=== PATIENT | female | born 1950 | race Caucasian/White ===

== ENCOUNTER 2019-04-27 13:14 | Outpatient (CLI) | payer MEDICARE, SELFPAY ==
--- NOTE | ~2019-04-27 | MM_ITS ---
EXAMINATION: MM screen LT diag RT w teresa HISTORY: Carcinoma of right breast, June 2018; status post right partial mastectomy and radiation stephan tment TECHNIQUE: Bilateral rotated lateral CC views. 3-D tomosynthesis images of both breasts were performe d and synthetic 2-D images were generated. CAD analysis was submitted and interpreted. Additional com pression views of right breast. COMPARISON: 05/12/2018 diagnostic right digital mammogram Tobilateral digital screening mammogram BREAST PARENCHYMAL COMPOSITION: There are scattered areas of fibroglandular density. FINDINGS: Status post right partial mastectomy with multiple surgical clips present in the upper inne r and upper outer quadrants. There is asymmetric skin thickening on the right compared to the left wh ich may be secondary to history of radiation treatment. Status post left reduction mammoplasty since 04/22/2018. No suspicious mass or suspicious calcification of either breast is evident. IMPRESSION: 1. Probable benign findings; probable postsurgical and post radiation changes of right breast- 2. Recommend 6 month follow-up right diagnostic mammogram BI-RADS category 3, probably benign findings. Reviewed, dictated and finalized at location A. PHONE ORDER CLERK IMPRESSION: 1. Probable benign findings; probable postsurgical and post radiation changes o f right breast- 2. Recommend 6 month follow-up right diagnostic mammogram BI-RADS category 3, probably benign findings.
== END 2019-04-27 13:15 | disposition home or self-care (01) ==
PROVIDERS: PCP Family Medicine; Visit Provider Internal Medicine Hematology & Oncology
DX: Z12.31 Encounter for screening mammogram for malignant neoplasm of breast (principal); C50.911 Malignant neoplasm of unspecified site of right female breast; C77.3 Secondary and unspecified malignant neoplasm of axilla and upper limb lymph nodes
CPT/HCPCS: 77063; 77065; 77067

== ENCOUNTER 2019-06-01 14:02 | Outpatient (CLI) | payer MEDICARE, SELFPAY ==
[2019-06-01 14:14] LABS: Basophils Percent Auto 0.5 % (0.2-1.2); Eosinophils Absolute Auto 0.2 K/mm3 (0-0.3); Eosinophils Percent Auto 2.6 % (0-4.4); Hematocrit 43.8 % (37.0-47.0); Hemoglobin 14.7 g/dL (12.0-15.0); Immature Granulocyte Absolute 0.02 K/mm3 (0.00-0.031); Immature Granulocyte Percent A 0.3 % (0-0.5); Lymphocytes Percent Auto 19.6 % (18.3-44.2); Mean Corpuscular HGB Conc 33.6 g/dl (32-36); Mean Corpuscular Hemoglobin 31.9 pg (26-34); Mean Platelet Volume 9.4 fl (7.4-10.4); Monocytes Absolute Auto 0.6 K/mm3 (0.1-0.6); Neutrophils Absolute Auto 4.2 K/mm3 (1.3-6.7); Platelet Count Result 260 k/mm3 (150-375); Red Blood Count 4.61 M/mm3 (4.2-5.4); Red Cell Distribution Width 13.1 % (11.5-14.5); White Blood Count 6.1 K/mm3 (4.5-10.0)
[2019-06-01 16:37] LABS: Alanine Aminotransferase 16 U/L (4-35); Albumin Level 4.2 g/dL (3.5-5.1); Alkaline Phosphatase 82 U/L (38-126); Aspartate Amino Transferase 26 U/L (14-36); Bilirubin,Total 0.4 mg/dL (0.2-1.3); Blood Urea Nitrogen 14 mg/dL (7-17); Calcium 9.5 mg/dL (8.4-10.2); Carbon Dioxide 27 mmol/L (22-30); Chloride 103 mmol/L (98-107); Estimated Glomerular Filt Rate > 60; Glucose 123 mg/dL (65-105); Potassium 4.1 mmol/L (3.4-5.0); Sodium 137 mmol/L (137-145)
[2019-06-04 03:53] LABS: CA 15-3 17 U/mL (<32)
== END 2019-06-01 14:03 | disposition home or self-care (01) ==
LOC: ANHLAB 14:03
PROVIDERS: PCP Family Medicine; Visit Provider Internal Medicine Hematology & Oncology
DX: C50.911 Malignant neoplasm of unspecified site of right female breast (principal); C77.3 Secondary and unspecified malignant neoplasm of axilla and upper limb lymph nodes
CPT/HCPCS: 36415; 80053; 85025; 86300

== ENCOUNTER 2019-08-03 08:31 | Outpatient (CLI) | payer MEDICARE, SELFPAY ==
--- NOTE | ~2019-08-03 | CT_ITS ---
EXAMINATION: CT chest high resolution [facility] EXAM DATE: 08/03/2019 10:09 INDICATION: Cough and shortness of breath. History of breast cancer. TECHNIQUE: Spiral CT of the chest without contrast. HRCT. Axial, coronal and sagittal images were re viewed. Coronal maximum intensity pixel images of chest reviewed. The dose-length product (DLP) for this examination was 142.39 mGy-cm. The exposure was tailored according to patient size (auto mA ex posure control), and iterative reconstruction (ASIR) was used as additional dose reduction technique. There is no prior study for comparison. FINDINGS: There is mild to moderate centrilobular emphysema. Mild bronchiectasis. Right breast surgi zain changes. No intralobular septal thickening on the HRCT portion of exam. There are no pleural or p ericardial effusions. Tracheobronchial tree is patent. There is no mediastinal, hilar or axillary lymphadenopathy. There is no pneumothorax. Heart normal in size. There is moderate coronary ar terial calcification, arterial sclerosis. There are cholecystectomy clips. There is moderate thora cic spondylosis without osteoblastic or osteolytic lesions identified. IMPRESSION: 1. Mild to moderate emphysema. Reviewed, dictated and finalized at location A.
--- NOTE | 2019-08-04 12:52 | PFT_ITS ---
This report was moved to the correct visit, [id number] on 08/07/19. Original report was signed by Damaris Bowman MD on 08/04/19 at 1300. PFT Interpretation PFT Interpretation: DOS: 08/03/2019 REQUESTING: Eddie Madera REASON FOR TESTING: shortness of breath PULMONARY FUNCTION TESTS Results are reproducible. Spirometry: FEV1 113%, normal. FVC 112%, normal. FEV1% is 73%, normal. FEF25- 75% is 71%. After bronchodialtor, there is minimal change in flows. Lung volumes: TLC 101%. RV 86%, also normal. Airway resistance 111%. Diffusion: DLCO is 61%, mildly decreased which may be due to the patients smoking. Flow volume loop: There is mild scooping of the expiratory limb. IMPRESSION: Mild isolated decreased in diffusion. Otherwise normal results. Isolated decrease in diffusion can be seen in smoking anemia, early ILD, collagen vascular disease with pulmonary vascular involvement and chronic thromboembolic disease. Clinical correlation is recommended. Damaris Bowman MD Report Initialized date/time: Damaris Bowman MD 08/04/19 / 1252 Electronically signed by: Damaris Bowman MD 08/04/19 1300 [facility]
== END 2019-08-03 08:32 | disposition home or self-care (01) ==
PROVIDERS: PCP Family Medicine; Visit Provider Internal Medicine Critical Care Medicine
DX: J43.9 Emphysema, unspecified (principal)
CPT/HCPCS: 71250; 94060; 94726; 94729

== ENCOUNTER 2019-11-24 11:40 | Outpatient (CLI) | payer MEDICARE, SELFPAY ==
[2019-11-24 12:01] LABS: Basophils Percent Auto 0.4 % (0.2-1.2); Eosinophils Absolute Auto 0.1 K/mm3 (0-0.3); Eosinophils Percent Auto 2.8 % (0-4.4); Hematocrit 40.8 % (37.0-47.0); Hemoglobin 13.8 g/dL (12.0-15.0); Immature Granulocyte Absolute 0.01 K/mm3 (0.00-0.031); Immature Granulocyte Percent A 0.2 % (0-0.5); Lymphocytes Percent Auto 16.1 % (18.3-44.2); Mean Corpuscular HGB Conc 33.8 g/dl (32-36); Mean Corpuscular Hemoglobin 31.7 pg (26-34); Mean Corpuscular Volume 93.6 fl (80-100); Mean Platelet Volume 9.1 fl (7.4-10.4); Monocytes Absolute Auto 0.3 K/mm3 (0.1-0.6); Monocytes Percent Auto 6.8 % (2.6-8.5); Neutrophils Absolute Auto 3.7 K/mm3 (1.3-6.7); Neutrophils Percent Auto 73.7 % (45.5-73.1); Platelet Count Result 225 k/mm3 (150-375); Red Blood Count 4.36 M/mm3 (4.2-5.4); Red Cell Distribution Width 12.9 % (11.5-14.5)
[2019-11-24 16:52] LABS: Cholesterol 220 mg/dL (0-200); HDL Direct 55 mg/dL; Triglycerides 155 mg/dL (<150)
[2019-11-24 16:56] LABS: Alanine Aminotransferase 14 U/L (4-35); Alkaline Phosphatase 71 U/L (38-126); Anion Gap 6 mmol/L (8-16); Aspartate Amino Transferase 24 U/L (14-36); Bilirubin,Total 0.3 mg/dL (0.2-1.3); Blood Urea Nitrogen 15 mg/dL (7-17); Calcium 9.3 mg/dL (8.4-10.2); Carbon Dioxide 33 mmol/L (22-30); Chloride 102 mmol/L (98-107); Estimated Glomerular Filt Rate > 60; Glucose 128 mg/dL (65-105); Potassium 4.2 mmol/L (3.4-5.0); Sodium 141 mmol/L (137-145)
[2019-11-24 17:11] LABS: Iron 70 ug/dL (37-170); Vitamin D 25 Hydroxy 36.6 ng/mL
[2019-11-24 17:14] LABS: Erythrocyte Sedimentation Rate 16 mm/hr (0-20)
[2019-11-24 17:21] LABS: LDL Cholesterol Direct 157 mg/dL
[2019-11-24 17:23] LABS: Hemoglobin A1C 5.1 % (<5.7); Percent Iron Saturation 25 % (20-50); Thyroid Stimulating Hormone Reflex 0.073 uIU/mL (0.465-4.68)
[2019-11-24 19:39] LABS: Free T4 Free Thyroxine Reflex 1.59 ng/dL (0.78-2.19)
[2019-11-27 07:31] LABS: CA 15-3 18 U/mL (<32)
== END 2019-11-24 11:41 | disposition home or self-care (01) ==
PROVIDERS: PCP Family Medicine; Visit Provider Internal Medicine Hematology & Oncology
DX: R53.83 Other fatigue (principal); E78.2 Mixed hyperlipidemia; M79.10 Myalgia, unspecified site; E03.9 Hypothyroidism, unspecified; E55.9 Vitamin D deficiency, unspecified; E11.9 Type 2 diabetes mellitus without complications; C50.411 Malignant neoplasm of upper-outer quadrant of right female breast; Z17.0 Estrogen receptor positive status [ER+]
CPT/HCPCS: 36415; 80053; 80061; 82306; 82728; 83036; 83540; 83550; 84439; 84443; 84480; 85025; 85652; 86300

== ENCOUNTER 2019-12-10 12:36 | Outpatient (CLI) | payer MEDICARE, SELFPAY ==
--- NOTE | 2019-12-13 09:26 | WPDSIXMINUTE ---
Six Minute Walk Six Minute Walk: The patients O2 sats started at 98% and dropped as low as 96% Total walk distance 304.38 meters conclusion: This patient does not qualify for home oxygen therapy
== END 2019-12-10 12:37 | disposition home or self-care (01) ==
PROVIDERS: PCP Family Medicine; Visit Provider Family Medicine
DX: J44.9 Chronic obstructive pulmonary disease, unspecified (principal)
CPT/HCPCS: 94618

== ENCOUNTER 2019-12-15 12:53 | Outpatient (CLI) | payer MEDICARE, SELFPAY ==
--- NOTE | ~2019-12-15 | CT_ITS ---
EXAMINATION: CT chest abdomen pelvis w con EXAM DATE: 12/15/2019 14:35 INDICATION: Right-sided breast cancer. TECHNIQUE: Spiral CT of the chest, abdomen and pelvis was performed following intravenous injection o f 100 mL Omnipaque 350. Axial, coronal and sagittal images were reviewed. Coronal maximum intensity pixel images of chest reviewed. The dose-length product (DLP) for this examination was 548.50 mGy-c m. The exposure was tailored according to patient size (auto mA exposure control), and iterative rec onstruction (ASIR) was used as additional dose reduction technique. Comparison is made to prior exami nation from 08/03/2019 CT chest, 05/12/2018 CT abdomen. FINDINGS: CHEST: There is mild emphysema. There is right middle lobe linear scarring. There are no pleural or pericardial effusions. Tracheobronchial tree is patent. There is no mediastinal, hilar or axilla ry lymphadenopathy. There is no pneumothorax. Heart normal in size. There is moderate coronary arterial calcification, arterial sclerosis. ABDOMEN PELVIS: Left adrenal gland hyperplasia versus nodule which could measure up to 1.5 cm. This r egion does appear more conspicuous than in 2019. Differential diagnosis for mass would include adenom a, metastatic disease. The liver, spleen, adrenal glands and pancreas are unremarkable. There are dyer rgical clips in the gallbladder fossa. Some biliary duct dilation which is common finding following cholecystectomy. Portal and splenic veins are patent. Kidneys enhance symmetrically. There is no h ydronephrosis. The uterus is unremarkable. The bladder is unremarkable. There is no retroperiton eal or pelvic lymphadenopathy. There is moderate scattered arteriosclerotic disease. The appendix is normal. The stomach and small bowel are unremarkable. There is mild to moderate sigm oid colonic diverticulosis. There is no adjacent inflammatory change to suggest diverticulitis. No free intraperitoneal gas. There are no osteoblastic or osteolytic lesions identified. IMPRESSION: 1. Possible left adrenal mass versus hyperplasia. Attention to this on follow-up exam. 2. Colonic diverticulosis. Reviewed, dictated and finalized at location A. IMPRESSION: 1. Possible left adrenal mass versus hyperplasia. Attention to this on follow- up exam. 2. Colonic diverticulosis.
--- NOTE | ~2019-12-15 | MM_ITS ---
EXAMINATION: MM diagnostic maria a RT w teresa HISTORY: Right partial mastectomy and radiation treatment; six-month follow-up TECHNIQUE: 3-D tomosynthesis images of the right breast were performed and synthetic 2-D images were generated. CAD analysis was submitted and interpreted. COMPARISON: 05/12/2018 diagnostic right digital mammogram and limited right breast ultrasound 04/22/2018 bilateral digital screening mammogram BREAST PARENCHYMAL COMPOSITION: There are scattered areas of fibroglandular density. FINDINGS: Surgical clips are noted in the upper inner and upper outer quadrant of the right breast. No suspicious mass or significant new or developing density of the right breast is evident. Occasiona l benign appearing microcalcifications are noted. IMPRESSION: 1. Status post right partial mastectomy and radiation treatment for breast cancer 2. No mammographic evidence of malignancy is identified on the current examination BI-RADS Category 2: Benign finding(s).. Reviewed, dictated and finalized at location A. IMPRESSION: 1. Status post right partial mastectomy and radiation treatment for breast canc er 2. No mammographic evidence of malignancy is identified on the current examinat ion BI-RADS Category 2: Benign finding(s)..
[2019-12-15 14:27] LABS: Estimated Glomerular Filt Rate > 60
== END 2019-12-15 12:54 | disposition home or self-care (01) ==
LOC: ANHIMG 12:57
PROVIDERS: PCP Family Medicine; Visit Provider Internal Medicine Hematology & Oncology
DX: C50.411 Malignant neoplasm of upper-outer quadrant of right female breast (principal); Z17.0 Estrogen receptor positive status [ER+]; K57.30 Diverticulosis of large intestine without perforation or abscess without bleeding
CPT/HCPCS: 71260; 74177; 77061; 77065; G0279; Q9967

== ENCOUNTER 2019-12-25 13:00 | Outpatient (RCR) | payer MEDICARE, SELFPAY ==
[2019-12-03 12:18] VITALS: PULSE 70
--- NOTE | 2019-12-28 14:18 | PCCPR ---
Clarissa called today and stated that she fell and hurt her ankle, she will be absent on Saturday.
--- NOTE | 2019-12-29 16:17 | PCCPR ---
Addendum entered by Linsey Eagle RN 12/31/19 13:45: Clarissa called today states she got up in the middle of the night using her crutches and fell into the bathtub. States she fractured her arm and her ankle. States she is pretty sure even though she would love to but will be months before she would be able to return. Encouraged her to check back with us after the 1st of the year if she would like to return. Discharged as requested. Original Note: Clarissa fell needs MARITZA for foot fracture Clarissa called to update us she fell in her yard and broke a toe and one of her metatarsals. She hopes to return as soon as able however was told to stay off of it as much as possible for the next 6 weeks. She wants us to let her know what ever she needs to do but is fine with being placed on hold for now.
== END 2020-01-01 10:42 | disposition home or self-care (01) ==
LOC: ANHCPREHAB 13:00
PROVIDERS: PCP Family Medicine; Visit Provider Family Medicine
DX: J44.9 Chronic obstructive pulmonary disease, unspecified (principal)
CPT/HCPCS: 97150; G0424

== ENCOUNTER 2019-12-29 13:09 | Emergency (ER) | payer MEDICARE, SELFPAY ==
--- NOTE | ~2019-12-29 | XR_ITS ---
EXAMINATION: XR ankle LT min 3V DATE: 12/29/2019 13:43 INDICATION: Left foot pain and ankle swelling TECHNIQUE: Three views of the ankle were obtained. COMPARISON: None. FINDINGS: There is fragmentation at the lateral malleolus which appears to be well corticated, sugges tive of prior injury. No definite acute injury is identified. There is soft tissue swelling of ankle. The ankle mortise is intact. Bone alignment is normal. A plantar calcaneal enthesophyte is present. IMPRESSION: 1. Ankle soft tissue swelling and findings suggestive of prior avulsion injury of the lateral malleol us without acute osseous findings seen. Reviewed, dictated and finalized at location A. SPRING STRIP GAUGER IMPRESSION: 1. Ankle soft tissue swelling and findings suggestive of prior avulsion injury of the lateral malleolus without acute osseous findings seen.
--- NOTE | ~2019-12-29 | XR_ITS ---
EXAMINATION: XR foot LT min 3V DATE: 12/29/2019 13:29 INDICATION: Left foot pain, initial encounter TECHNIQUE: Dorsoplantar, lateral, and 2 oblique views of the left foot were obtained. COMPARISON: None. FINDINGS: There is an acute, traumatic, closed, comminuted shaft fracture of the fifth metatarsal. So ft tissue swelling surrounds the fracture. Alignment is essentially anatomic. There is mild to modera te osteoarthritis at the first metatarsophalangeal joint and in multiple interphalangeal joints. A pl dawson calcaneal enthesophyte is noted. Soft tissue swelling is noted at the lateral ankle. IMPRESSION: 1. Acute, comminuted shaft fracture of the fifth metatarsal. 2. Soft tissue swelling at the lateral ankle. Consider dedicated ankle radiographs. Reviewed, dictated and finalized at location A. ATRIC PHYSICIAN ASSISTANT IMPRESSION: 1. Acute, comminuted shaft fracture of the fifth metatarsal. 2. Soft tissue swelling at the lateral ankle. Consider dedicated ankle radiogra phs.
[2019-12-29 13:11] VITALS: BP 102/83; PULSE 96; RESP 18; TEMP 36.3; O2SAT 99
--- NOTE | 2019-12-29 13:32 | ED.LOWEXIN ---
HPI - Extremity Injury (Lower) General Chief Complaint: Extremity Injury, Lower Stated Complaint: Left Foot Injury Time Seen by Provider: 12/29/19 13:18 Source: patient History of Present Illness HPI Narrative: 69-year-old female presents to emergency department after sustaining a fall yesterday afternoon. Patient states she was walking downstairs at home, and fell down the last 1-2 stairs. She reports pain to the left foot and left ankle. Denies losing consciousness. Denies anticoagulation use. Patient also states she hit the left side of her head. She took aspirin for pain yesterday. Related Data Home Medications Medication Instructions Recorded Confirmed famotidine 20 mg tablet 20 mg PO DAILY PRN 11/13/19 12/03/19 letrozole 2.5 mg tablet 2.5 mg PO DAILY 11/13/19 12/03/19 acetaminophen [Acetaminophen Extra 500 mg PO HS PRN 12/03/19 12/03/19 Strength] bioflavonoids 1,000 mg PO DAILY 12/03/19 12/03/19 fluticasone furoate-vilanterol 1 inh INHALATION DAILY 12/03/19 12/03/19 [Breo Ellipta] venlafaxine 75 mg PO DAILY 12/03/19 12/03/19 Allergies Allergy/AdvReac Type Severity Reaction Status Date / Time Antihistamines - Alkylamine Allergy Unknown ANXIETY Verified 12/29/19 13:43 codeine AdvReac Unknown Nausea and Verified 12/29/19 13:43 Vomiting hydrocodone AdvReac Unknown NAUSEA AND Verified 12/29/19 13:43 VOMITING Review of Systems Review of Systems: Narrative: CONSTITUTIONAL: Denies fever, chills, or sweats. EYES: Denies visual changes, redness, or discharge. ENT: Denies rhinorrhea, congestion, sore throat, or otalgia. CARDIOVASCULAR: Denies chest pain, palpitations, or edema. RESPIRATORY: Denies cough or dyspnea. GASTROINTESTINAL: Denies abdominal pain, nausea, vomiting, or diarrhea. GENITOURINARY: Denies dysuria or hematuria. SKIN: Denies rash or itching. MUSCULOSKELETAL: Denies back pain, joint pain, or myalgia. NEUROLOGIC: Denies headache, numbness, dizziness, or weakness. PSYCHIATRIC: Denies anxiety or depression. All systems reviewed & are unremarkable except as noted in HPI and below (ROS) PMFSH Past Medical History Medical History (Updated 12/29/19 @ 21:11 by Jaycob Yan DO) Anxiety Fibromyalgia H/O Sjogren's disease Hypothyroidism Insomnia Lymphedema Malignant neoplasm of upper-outer quadrant of right female breast Mixed hyperlipidemia Family History Family History Father Depression Family history of coronary artery disease Hyperlipemia Heart attack Mother Family history of arthritis Heart attack Social History Social History Smoking packs per day: 2 Smoking cigarettes per day: 40.0 Years smoked: 23 Smoking pack-years: 46.00 Smoking status: Former smoker Tobacco type: cigarettes Second hand tobacco smoke exposure: No Smoking end date: 02/25/99 Alcohol intake: current Gender identity (if verbalized by the patient): Female Exam Narrative: Exam Narrative: GENERAL: Well-appearing, well-nourished, and in no acute distress. HEAD: Normocephalic, atraumatic. EYES: PERRLA and EOMI. ENT: Nares clear, no rhinorrhea or epistaxis. Mucous membranes moist. NECK: Supple. CHEST: Clear to auscultation. No respiratory distress. HEART: Regular rate and rhythm. No murmur heard. Normal peripheral pulses. ABDOMEN: Soft, nontender, nondistended, normal active bowel sounds. EXTREMITIES: Left lateral foot with swelling and tenderness to palpation. Left ankle swelling and TTP SKIN: Warm, dry, no rash. NEURO: No focal deficits. Alert and oriented x3. PSYCH: Normal mood and affect. Course Reevaluation(s) Reevaluation #1: 1525 -reevaluated patient, no new complaints. Will prescribe postop shoe for discharge. Patient states she has crutches at home to use. Additionally, patient has a senior warehouse clerk that she will follow up with within 1 week. Counseled patient
--- NOTE | 2019-12-29 15:05 | PC.NURSE ---
Report given to TOMY Medina
[2019-12-29 16:01] VITALS: BP 106/71; PULSE 76; RESP 16; TEMP 36.8; O2SAT 100
== END 2019-12-29 16:02 | disposition home or self-care (01) ==
PROVIDERS: Emergency Provider Emergency Medicine; PCP Family Medicine
DX: S92.352A Displaced fracture of fifth metatarsal bone, left foot, initial encounter for closed fracture (principal); S93.402A Sprain of unspecified ligament of left ankle, initial encounter; W10.9XXA Fall (on) (from) unspecified stairs and steps, initial encounter; Z87.891 Personal history of nicotine dependence; F41.9 Anxiety disorder, unspecified; M79.7 Fibromyalgia; E03.9 Hypothyroidism, unspecified; Z85.3 Personal history of malignant neoplasm of breast
CPT/HCPCS: 73610; 73630; 99284

== ENCOUNTER 2020-02-24 11:29 | Outpatient (CLI) | payer MEDICARE, SELFPAY ==
[2020-02-24 11:47] LABS: Hematocrit 42.6 % (37.0-47.0); Hemoglobin 14.4 g/dL (12.0-15.0); Mean Corpuscular HGB Conc 33.8 g/dl (32-36); Mean Corpuscular Hemoglobin 32.1 pg (26-34); Mean Corpuscular Volume 94.9 fl (80-100); Mean Platelet Volume 9.6 fl (7.4-10.4); Platelet Count Result 251 k/mm3 (150-375); Red Blood Count 4.49 M/mm3 (4.2-5.4); White Blood Count 6.2 K/mm3 (4.5-10.0)
[2020-02-24 12:38] LABS: Hemoglobin A1C 4.8 % (<5.7)
[2020-02-24 12:40] LABS: Alanine Aminotransferase 11 U/L (4-35); Albumin Level 3.9 g/dL (3.5-5.1); Alkaline Phosphatase 80 U/L (38-126); Anion Gap 5 mmol/L (8-16); Aspartate Amino Transferase 22 U/L (14-36); Bilirubin,Total 0.4 mg/dL (0.2-1.3); Blood Urea Nitrogen 14 mg/dL (7-17); Calcium 9.6 mg/dL (8.4-10.2); Carbon Dioxide 32 mmol/L (22-30); Chloride 103 mmol/L (98-107); Estimated Glomerular Filt Rate > 60; Glucose 101 mg/dL (65-105); Potassium 4.3 mmol/L (3.4-5.0); Sodium 140 mmol/L (137-145)
[2020-02-24 13:00] LABS: Thyroid Stimulating Hormone Reflex 0.024 uIU/mL (0.465-4.68)
[2020-02-24 13:57] LABS: Free T4 Free Thyroxine Reflex 1.63 ng/dL (0.78-2.19)
[2020-02-24 14:37] LABS: Total Triiodothyronine (T3) 1.32 NG/ML (0.97-1.69)
[2020-03-01 11:06] LABS: CA 15-3 18 U/mL (<32)
== END 2020-02-24 11:30 | disposition home or self-care (01) ==
LOC: ANHLAB 11:30
PROVIDERS: PCP Family Medicine; Visit Provider Family Medicine
DX: C50.411 Malignant neoplasm of upper-outer quadrant of right female breast (principal); R53.83 Other fatigue; R73.9 Hyperglycemia, unspecified; E03.9 Hypothyroidism, unspecified
CPT/HCPCS: 36415; 80053; 83036; 84439; 84443; 84480; 85027; 86300

== ENCOUNTER 2020-05-17 14:37 | Outpatient (CLI) | payer MEDICARE, SELFPAY ==
[2020-05-17 15:04] LABS: Basophils Percent Auto 0.7 % (0.2-1.2); Eosinophils Absolute Auto 0.2 K/mm3 (0-0.3); Eosinophils Percent Auto 3.1 % (0-4.4); Hematocrit 39.5 % (37.0-47.0); Hemoglobin 13.2 g/dL (12.0-15.0); Immature Granulocyte Absolute 0.01 K/mm3 (0.00-0.031); Immature Granulocyte Percent A 0.2 % (0-0.5); Lymphocytes Absolute Auto 1.13 K/mm3 (0.9-3.2); Lymphocytes Percent Auto 20.8 % (18.3-44.2); Mean Corpuscular HGB Conc 33.4 g/dl (32-36); Mean Corpuscular Hemoglobin 31.7 pg (26-34); Mean Corpuscular Volume 94.7 fl (80-100); Mean Platelet Volume 9.3 fl (7.4-10.4); Monocytes Absolute Auto 0.5 K/mm3 (0.1-0.6); Monocytes Percent Auto 9.6 % (2.6-8.5); Neutrophils Absolute Auto 3.6 K/mm3 (1.3-6.7); Neutrophils Percent Auto 65.6 % (45.5-73.1); Platelet Count Result 274 k/mm3 (150-375); Red Blood Count 4.17 M/mm3 (4.2-5.4); Red Cell Distribution Width 13.2 % (11.5-14.5); White Blood Count 5.4 K/mm3 (4.5-10.0)
[2020-05-17 16:43] LABS: Erythrocyte Sedimentation Rate 22 mm/hr (0-20)
[2020-05-17 16:59] LABS: Alanine Aminotransferase 12 U/L (4-35); Albumin Level 3.9 g/dL (3.5-5.1); Alkaline Phosphatase 81 U/L (38-126); Anion Gap 4 mmol/L (8-16); Aspartate Amino Transferase 25 U/L (14-36); Bilirubin,Total 0.2 mg/dL (0.2-1.3); Blood Urea Nitrogen 13 mg/dL (7-17); Calcium 9.1 mg/dL (8.4-10.2); Carbon Dioxide 32 mmol/L (22-30); Chloride 102 mmol/L (98-107); Estimated Glomerular Filt Rate > 60; Glucose 91 mg/dL (65-105); Potassium 3.9 mmol/L (3.4-5.0); Sodium 138 mmol/L (137-145)
[2020-05-17 17:26] LABS: Thyroid Stimulating Hormone < 0.015 uIU/mL (0.465-4.680)
[2020-05-17 18:01] LABS: Folic Acid 5.9 ng/mL (2.76->20)
[2020-05-20 06:44] LABS: CA 15-3 12 U/mL (<32)
== END 2020-05-17 14:38 | disposition home or self-care (01) ==
LOC: ANHLAB 14:39
PROVIDERS: PCP Family Medicine; Visit Provider Internal Medicine Hematology & Oncology
DX: C50.411 Malignant neoplasm of upper-outer quadrant of right female breast (principal); Z17.0 Estrogen receptor positive status [ER+]; R26.9 Unspecified abnormalities of gait and mobility; R42 Dizziness and giddiness; E03.9 Hypothyroidism, unspecified
CPT/HCPCS: 36415; 80053; 82607; 82746; 84439; 84443; 85025; 85652; 86038; 86300

== ENCOUNTER 2020-05-30 10:32 | Outpatient (CLI) | payer MEDICARE, SELFPAY ==
--- NOTE | ~2020-05-30 | CT_ITS ---
EXAMINATION: CT abdomen pelvis wo/w con DATE: 05/30/2020 11:03 INDICATION: Left adrenal mass. Right breast cancer. TECHNIQUE: Computed tomography (CT) of the abdomen and pelvis was performed without and with 100 mL O mnipaque 350 intravenous contrast. Automated exposure control and iterative reconstruction technique were employed. The dose-length product was 541.91 mGy-cm. COMPARISON: CT 12/15/2019 FINDINGS: The visualized portions of the lung bases demonstrate minimal atelectasis. No pleural effus ion. The heart size is normal. There are coronary artery calcifications. No pericardial effusion. The re are cysts in the liver measuring up to 18 mm. There are changes of cholecystectomy. Calcifications in the spleen are consistent with old granulomatous disease. The pancreas and right adrenal gland ar e normal. There is a 1.3 cm mass in left adrenal gland measuring low-attenuation, consistent with an adenoma. Right kidney is normal. There are cysts in left kidney measuring up to 6 mm. There is divert iculosis of the colon without evidence of diverticulitis. There are no dilated loops of bowel. The ap pendix is normal. There are no pathologically enlarged lymph nodes. There is no free intraperitoneal fluid. There is severe lower thoracic spondylosis. There is moderate lumbar spondylosis. IMPRESSION: 1. Stable 1.3 cm left adrenal adenoma. 2. No evidence of metastatic disease. Reviewed, dictated and finalized at location A.
== END 2020-05-30 10:33 | disposition home or self-care (01) ==
PROVIDERS: PCP Family Medicine; Visit Provider Internal Medicine Hematology & Oncology
DX: E27.8 Other specified disorders of adrenal gland (principal)
CPT/HCPCS: 74178; Q9967

== ENCOUNTER 2020-06-28 12:40 | Outpatient (CLI) | payer MEDICARE, SELFPAY ==
--- NOTE | ~2020-06-28 | MM_ITS ---
EXAMINATION: MM diagnostic maria a BI w teresa HISTORY: History of right breast cancer TECHNIQUE: Additional 3-D tomosynthesis images of the breasts were performed and synthetic 2-D images were generated. CAD analysis was submitted and interpreted. COMPARISON: Comparison to multiple prior studies sequentially, with oldest reviewed study dated 09/09. BREAST PARENCHYMAL COMPOSITION: There are scattered areas of fibroglandular density. FINDINGS: Stable postsurgical change in both breasts consistent with previous right lumpectomy and bi lateral breast reduction surgery. No new masses, calcifications or architectural distortion in either breast to suggest malignancy. IMPRESSION: 1. No mammographic evidence for malignancy in either breast. 2. Routine yearly screening mammogram and regular clinical breast examination are recommended. BI-RADS Category 1: Negative Reviewed, dictated and finalized at location A. IMPRESSION: 1. No mammographic evidence for malignancy in either breast. 2. Routine yearly screening mammogram and regular clinical breast examination a re recommended. BI-RADS Category 1: Negative
== END 2020-06-28 12:41 | disposition home or self-care (01) ==
LOC: ANHIMG 12:42
PROVIDERS: PCP Family Medicine; Visit Provider Internal Medicine Hematology & Oncology
DX: R92.8 Other abnormal and inconclusive findings on diagnostic imaging of breast (principal)
CPT/HCPCS: 77062; 77066; G0279

== ENCOUNTER 2020-08-01 11:36 | Outpatient (CLI) | payer MEDICARE, SELFPAY ==
[2020-08-01 17:40] LABS: Alanine Aminotransferase 12 U/L (4-35); Albumin Level 4.3 g/dL (3.5-5.1); Alkaline Phosphatase 91 U/L (38-126); Anion Gap 9 mmol/L (8-16); Aspartate Amino Transferase 28 U/L (14-36); Bilirubin,Total 0.4 mg/dL (0.2-1.3); Blood Urea Nitrogen 12 mg/dL (7-17); Calcium 9.7 mg/dL (8.4-10.2); Carbon Dioxide 28 mmol/L (22-30); Chloride 104 mmol/L (98-107); Estimated Glomerular Filt Rate > 60; Glucose 102 mg/dL (65-105); Potassium 4.6 mmol/L (3.4-5.0); Sodium 141 mmol/L (137-145)
[2020-08-01 17:55] LABS: Free T4 Free Thyroxine 1.33 ng/mL (0.78-2.19)
[2020-08-01 18:11] LABS: Thyroid Stimulating Hormone 0.045 uIU/mL (0.465-4.680); Total Triiodothyronine (T3) 1.19 NG/ML (0.97-1.69)
== END 2020-08-01 11:37 | disposition home or self-care (01) ==
LOC: ANHLAB 11:46
PROVIDERS: PCP Family Medicine; Visit Provider Internal Medicine Hematology & Oncology
DX: R53.83 Other fatigue (principal); E03.9 Hypothyroidism, unspecified
CPT/HCPCS: 36415; 80053; 84439; 84443; 84480

== ENCOUNTER 2020-08-31 12:59 | Outpatient (CLI) | payer MEDICARE, SELFPAY | END 2020-08-31 13:00 | disposition home or self-care (01) | LOC: ANHAUDIO 13:02 | PROVIDERS: PCP Family Medicine; Visit Provider Family Medicine | DX: H91.90 Unspecified hearing loss, unspecified ear (principal) | CPT/HCPCS: 92557; 92567 ==

== ENCOUNTER 2020-10-12 14:37 | Outpatient (CLI) | payer MEDICARE, SELFPAY ==
[2020-10-12 14:53] LABS: Basophils Percent Auto 0.6 % (0.2-1.2); Eosinophils Absolute Auto 0.2 K/mm3 (0-0.3); Hematocrit 41.5 % (37.0-47.0); Hemoglobin 14.1 g/dL (12.0-15.0); Immature Granulocyte Absolute 0.02 K/mm3 (0.00-0.031); Immature Granulocyte Percent A 0.3 % (0-0.5); Lymphocytes Absolute Auto 1.27 K/mm3 (0.9-3.2); Lymphocytes Percent Auto 18.1 % (18.3-44.2); Mean Corpuscular Hemoglobin 31.8 pg (26-34); Mean Corpuscular Volume 93.7 fl (80-100); Mean Platelet Volume 9.3 fl (7.4-10.4); Monocytes Absolute Auto 0.5 K/mm3 (0.1-0.6); Monocytes Percent Auto 7.4 % (2.6-8.5); Neutrophils Percent Auto 70.6 % (45.5-73.1); Platelet Count Result 300 k/mm3 (150-375); Red Blood Count 4.43 M/mm3 (4.2-5.4); Red Cell Distribution Width 12.9 % (11.5-14.5)
[2020-10-12 14:57] LABS: Blood Urea Nitrogen 16 mg/dL (8-26); Carbon Dioxide 30 mmol/L (22-30); Chloride 99 mmol/L (98-109); Estimated Glomerular Filt Rate > 60; Glucose 138 mg/dL (70-105); Potassium 3.6 mmol/L (3.5-4.9); Sodium 140 mmol/L (138-146)
[2020-10-12 16:37] LABS: Alanine Aminotransferase 14 U/L (4-35); Albumin Level 4.4 g/dL (3.5-5.1); Alkaline Phosphatase 89 U/L (38-126); Anion Gap 6 mmol/L (8-16); Aspartate Amino Transferase 25 U/L (14-36); Bilirubin,Total 0.4 mg/dL (0.2-1.3); Blood Urea Nitrogen 16 mg/dL (7-17); Calcium 9.3 mg/dL (8.4-10.2); Carbon Dioxide 29 mmol/L (22-30); Chloride 102 mmol/L (98-107); Estimated Glomerular Filt Rate > 60; Glucose 135 mg/dL (65-110); Potassium 3.8 mmol/L (3.4-5.0); Sodium 137 mmol/L (137-145)
[2020-10-15 07:22] LABS: CA 15-3 14 U/mL (<32)
== END 2020-10-12 14:38 | disposition home or self-care (01) ==
LOC: ANHLAB 14:39
PROVIDERS: PCP Family Medicine; Visit Provider Internal Medicine Hematology & Oncology
DX: C50.411 Malignant neoplasm of upper-outer quadrant of right female breast (principal); Z17.0 Estrogen receptor positive status [ER+]
CPT/HCPCS: 36415; 80048; 80053; 85025; 86300

== ENCOUNTER 2021-02-03 09:01 | Outpatient (CLI) | payer MEDICARE, SELFPAY ==
--- NOTE | ~2021-02-03 | XR_ITS ---
EXAMINATION: XR chest 2V DATE: 02/03/2021 09:19 INDICATION: Dyspnea, unspecified TECHNIQUE: PA and lateral views of the chest are obtained. COMPARISON: 01/15/2019 FINDINGS: The lungs are free of acute opacities. There is no pleural effusion or pneumothorax. The ca rdiomediastinal silhouette is normal. There is severe thoracic spondylosis. IMPRESSION: 1. No acute cardiopulmonary abnormality. Reviewed, dictated and finalized at location A. ESTATE AGENCY PRINCIPAL
--- NOTE | ~2021-02-03 | NM_ITS ---
EXAMINATION: NM pulmonary perfusion DATE: 02/03/2021 09:51 INDICATION: Dyspnea, unspecified. TECHNIQUE: 4.8 mCi Tc-99m MAA was administered intravenously for perfusion images. Scintigraphic domenica ges of the chest were obtained. COMPARISON: Chest CT 12/15/2019, chest 2 views 02/03/2021 FINDINGS: Perfusion images show moderate-sized and large defects in the upper lobes and left lower lobe matched with emphysema by CT. IMPRESSION: 1. Nondiagnostic (intermediate probability for pulmonary embolism). Reviewed, dictated and finalized at location A. M AND POWER SUPERINTENDENT
--- NOTE | 2021-02-03 16:51 | WPDPFTINT ---
PFT Procedure Performed PFT Procedure Performed Spirometry with Pre/Post Bronchodilator Plethysmography (Lung Vol) Diffusing Cap (DLCO) Flow Vol Loop PFT Interpretation Lung volumes were measured with the body plethysmography method. Lung volumes are unremarkable. Spirometry showed normal expiratory flow rates and a normal FEV1 to FVC ratio of 72 %. Following administration of a bronchodilator, there was no significant increase in expiratory flow rates. Lung diffusion capacity is moderately reduced at 59%. The flow volume loop is unremarkable. In comparison to previous study in 2019, the post bronchodilator measurements of FVC and FEV1 are essentially unchanged. Total lung capacity is also not significantly changed as is the lung diffusion capacity. Impression: Spirometry, lung volumes within the normal range. Moderately reduced lung diffusion capacity. Overall, no significant change from previous study in 2020.
== END 2021-02-03 09:02 | disposition home or self-care (01) ==
LOC: ANHIMG 09:03
PROVIDERS: PCP Family Medicine; Visit Provider Nurse Practitioner Family
DX: R06.02 Shortness of breath (principal); R06.00 Dyspnea, unspecified
CPT/HCPCS: 71046; 78580; 94060; 94726; 94729; A9540

== ENCOUNTER 2021-04-04 11:10 | Outpatient (CLI) | payer MEDICARE, SELFPAY ==
[2021-04-04 11:32] LABS: Basophils Absolute Auto 0.1 K/mm3 (0.0-0.1); Basophils Percent Auto 0.7 % (0.2-1.2); Eosinophils Absolute Auto 0.3 K/mm3 (0-0.3); Eosinophils Percent Auto 3.8 % (0-4.4); Hematocrit 42.3 % (37.0-47.0); Immature Granulocyte Absolute 0.02 K/mm3 (0.00-0.031); Immature Granulocyte Percent A 0.3 % (0-0.5); Lymphocytes Percent Auto 14.2 % (18.3-44.2); Mean Corpuscular HGB Conc 33.1 g/dl (32-36); Mean Corpuscular Hemoglobin 32.2 pg (26-34); Mean Corpuscular Volume 97.2 fl (80-100); Monocytes Absolute Auto 0.5 K/mm3 (0.1-0.6); Monocytes Percent Auto 7.3 % (2.6-8.5); Neutrophils Absolute Auto 5.2 K/mm3 (1.3-6.7); Neutrophils Percent Auto 73.7 % (45.5-73.1); Platelet Count Result 311 k/mm3 (150-375); Red Blood Count 4.35 M/mm3 (4.2-5.4); Red Cell Distribution Width 13.5 % (11.5-14.5)
[2021-04-04 12:53] LABS: Hemoglobin A1C 5.2 % (<5.7)
[2021-04-04 12:58] LABS: D Dimer 0.58 ug/mL (<0.48)
[2021-04-04 13:07] LABS: Alanine Aminotransferase 14 U/L (4-35); Albumin Level 4.4 g/dL (3.5-5.1); Alkaline Phosphatase 100 U/L (38-126); Anion Gap 6 mmol/L (8-16); Aspartate Amino Transferase 46 U/L (14-36); Bilirubin,Total 0.2 mg/dL (0.2-1.3); Blood Urea Nitrogen 15 mg/dL (7-17); Calcium 9.4 mg/dL (8.4-10.2); Carbon Dioxide 29 mmol/L (22-30); Chloride 101 mmol/L (98-107); Estimated Glomerular Filt Rate > 60; Glucose 119 mg/dL (65-110); Potassium 3.7 mmol/L (3.4-5.0); Sodium 136 mmol/L (137-145)
[2021-04-04 13:45] LABS: Free T4 Free Thyroxine 1.46 ng/mL (0.78-2.19)
[2021-04-04 13:59] LABS: Thyroid Stimulating Hormone 0.042 uIU/mL (0.465-4.680)
[2021-04-06 13:27] LABS: CA 15-3 15 U/mL (<32)
[2021-04-06 13:28] LABS: Triiodothyronine T3 Free 2.6 pg/mL (2.3-4.2)
[2021-04-06 21:46] LABS: Alpha-1-Antitrypsin, QN 171 mg/dL (83-199)
== END 2021-04-04 11:11 | disposition home or self-care (01) ==
PROVIDERS: PCP Family Medicine; Visit Provider Internal Medicine Hematology & Oncology
DX: E55.9 Vitamin D deficiency, unspecified (principal); E03.9 Hypothyroidism, unspecified; J43.9 Emphysema, unspecified; R73.9 Hyperglycemia, unspecified; R06.00 Dyspnea, unspecified; C50.411 Malignant neoplasm of upper-outer quadrant of right female breast; Z17.0 Estrogen receptor positive status [ER+]
CPT/HCPCS: 36415; 80053; 82103; 82104; 82306; 83036; 84439; 84443; 84481; 85025; 85380; 86300

== ENCOUNTER 2021-06-12 14:33 | Outpatient (CLI) | payer MEDICARE, SELFPAY ==
--- NOTE | ~2021-06-12 | MM_ITS ---
EXAMINATION: MM screening maria a BI w teresa HISTORY: Screening mammogram TECHNIQUE: Craniocaudal and mediolateral oblique 3-D tomosynthesis images were obtained and synthetic 2-D images were generated. CAD analysis was submitted and interpreted. COMPARISON: 06/2020 diagnostic bilateral mammogram 12/15/2019 diagnostic right mammogram 04/27/2019 bilateral mammogram BREAST PARENCHYMAL COMPOSITION: There are scattered areas of fibroglandular density. FINDINGS: Surgical clips are noted in the mid to upper right breast medially and laterally; history o f prior partial mastectomy for breast cancer. There is no evidence of suspicious mass, calcification, or architectural distortion to suggest malig andre in either breast. There has been no suspicious interval change. IMPRESSION: 1. Status post right partial mastectomy for breast cancer. No mammographic evidence of malignancy. 2. Recommend routine screening mammography in one year. BI-RADS Category 2: Benign finding(s). Reviewed, dictated and finalized at location A. IMPRESSION: 1. Status post right partial mastectomy for breast cancer. No mammographic evid ence of malignancy. 2. Recommend routine screening mammography in one year. BI-RADS Category 2: Benign finding(s).
== END 2021-06-12 14:34 | disposition home or self-care (01) ==
LOC: ANHIMG 14:36
PROVIDERS: PCP Family Medicine; Visit Provider Internal Medicine Hematology & Oncology
DX: Z12.31 Encounter for screening mammogram for malignant neoplasm of breast (principal)
CPT/HCPCS: 77063; 77067

== ENCOUNTER 2021-09-05 13:58 | Outpatient (CLI) | payer MEDICARE, SELFPAY ==
[2021-09-05 14:24] LABS: Basophils Percent Auto 0.5 % (0.2-1.2); Eosinophils Absolute Auto 0.2 K/mm3 (0-0.3); Eosinophils Percent Auto 3.4 % (0-4.4); Hematocrit 39.7 % (37.0-47.0); Hemoglobin 13.4 g/dL (12.0-15.0); Immature Granulocyte Absolute 0.02 K/mm3 (0.00-0.031); Immature Granulocyte Percent A 0.3 % (0-0.5); Lymphocytes Absolute Auto 1.23 K/mm3 (0.9-3.2); Lymphocytes Percent Auto 20.1 % (18.3-44.2); Mean Corpuscular HGB Conc 33.8 g/dl (32-36); Mean Corpuscular Hemoglobin 32.8 pg (26-34); Mean Corpuscular Volume 97.1 fl (80-100); Mean Platelet Volume 8.9 fl (7.4-10.4); Monocytes Absolute Auto 0.5 K/mm3 (0.1-0.6); Monocytes Percent Auto 8.5 % (2.6-8.5); Neutrophils Absolute Auto 4.1 K/mm3 (1.3-6.7); Neutrophils Percent Auto 67.2 % (45.5-73.1); Platelet Count Result 258 k/mm3 (150-375); Red Blood Count 4.09 M/mm3 (4.2-5.4); Red Cell Distribution Width 13.2 % (11.5-14.5); White Blood Count 6.1 K/mm3 (4.5-10.0)
[2021-09-05 15:18] LABS: Alanine Aminotransferase 13 U/L (6-35); Albumin Level 4.4 g/dL (3.5-5.1); Alkaline Phosphatase 82 U/L (38-126); Anion Gap 4 mmol/L (8-16); Aspartate Amino Transferase 27 U/L (14-36); Bilirubin,Total 0.2 mg/dL (0.2-1.3); Blood Urea Nitrogen 15 mg/dL (7-17); Calcium 9.3 mg/dL (8.4-10.2); Carbon Dioxide 32 mmol/L (22-30); Chloride 101 mmol/L (98-107); Estimated Glomerular Filt Rate 55; Glucose 108 mg/dL (65-110); Sodium 137 mmol/L (137-145)
[2021-09-05 16:43] LABS: Thyroid Stimulating Hormone Reflex 0.089 uIU/mL (0.465-4.68)
[2021-09-05 20:24] LABS: Free T4 Free Thyroxine Reflex 1.48 ng/dL (0.78-2.19)
[2021-09-07 13:15] LABS: CA 15-3 20 U/mL (<32)
[2021-09-08 16:43] LABS: Triiodothryronine T3 Uptake 28 % (22-35)
== END 2021-09-05 13:59 | disposition home or self-care (01) ==
LOC: ANHLAB 14:00
PROVIDERS: PCP Family Medicine; Visit Provider Internal Medicine Hematology & Oncology
DX: E03.9 Hypothyroidism, unspecified (principal); C50.411 Malignant neoplasm of upper-outer quadrant of right female breast; Z17.0 Estrogen receptor positive status [ER+]
CPT/HCPCS: 36415; 80053; 84439; 84443; 84479; 84480; 85025; 86300

== ENCOUNTER 2022-01-09 13:51 | Outpatient (CLI) | payer MEDICARE, SELFPAY ==
--- NOTE | ~2022-01-09 | DEXA_ITS ---
Bone Density Report Name: PRISCILA STEPHENS Age: 71 Sex: Female Ethnicity: White Date of : 1950 Indication: postmenopausal; screening for osteoporosis; parental hip fracture; height loss; prior fracture; cancer; asthma or emphysema; Referring Provider: CIERRA DAWKINS Study: Bone densitometry was performed. Exam Date: January 09, 2022 Accession number: [id number] Bone Density: Region BMD T-score Z-score Classification AP Spine(L1-L4) 0.964 -0.8 1.4 Normal Femoral Neck (Left) 0.581 -2.4 -0.6 Osteopenia Total Hip (Left) 0.711 -1.9 -0.4 Osteopenia Femoral Neck (Right) 0.641 -1.9 -0.1 Osteopenia Total Hip (Right) 0.756 -1.5 0.0 Osteopenia Total Hip Mean 0.734 -1.7 -0.2 Osteopenia World Health Organization criteria for BMD impression classify patients as: Normal (T-score at or above -1.0), Osteopenia (T-score between -1.0 and -2.5), or Osteoporosis (T-score at or below -2.5). 10-year Fracture Risk(1): Major Osteoporotic Fracture 33% Hip Fracture 11% Reported Risk Factors: [place] (), Neck BMD=0.581, BMI=25.7, previous fracture, parental fracture (1) FRAX(R) Version 3.08. Fracture probability calculated for an untreated patient. Fracture probability may be lower if the patient has received treatment. Previous Exams: Region Exam Age BMD T-score BMD Change BMD Change Date g/cm2 vs Baseline vs Previous AP Spine (L1-L4) 01/09/2022 71 0.964 -0.8 -0.053 (-5.2%) -0.053 (-5.2%) 04/22/2018 67 1.017 -0.3 Total Hip(Left) 01/09/2022 71 0.711 -1.9 -0.142 (-16.7% -0.142 (-16.7% 04/22/2018 67 0.854 -0.7 Total Hip(Right) 01/09/2022 71 0.756 -1.5 -0.146 (-16.1% -0.146 (-16.1% 04/22/2018 67 0.902 -0.3 *Denotes significance at 95% confidence level, LSC for AP Spine = 0.022 g/cm2, LSC for Total Hip = 0.027 g/cm2 Clinical Information Provided by Patient: Has had a low trauma fracture Parent has had a hip fracture Has used the following medications: Calcium Has the following medical conditions: Asthma or Emphysema, Cancer Patient maximum height was 66 Menopause Age: 51 No regular weight bearing exercise Does not regularly consume dairy products Onset of menses at age 10 Number of children 0 Impression: The patient has low bone mass, based on the Left Femoral Neck T-score. The patient has an estimated ten-year risk of hip fracture of 11% and an estimated ten-year risk of major fracture of 33%, based on
== END 2022-01-09 13:52 | disposition home or self-care (01) ==
PROVIDERS: PCP Family Medicine; Visit Provider Physician Assistant
DX: Z78.0 Asymptomatic menopausal state (principal); M85.852 Other specified disorders of bone density and structure, left thigh; M85.851 Other specified disorders of bone density and structure, right thigh
CPT/HCPCS: 77080

== ENCOUNTER 2022-05-30 15:07 | Emergency (ER) | payer MEDICARE, SELFPAY ==
[2022-05-30 15:20] VITALS: BP 139/85; PULSE 91; RESP 16; TEMP 35.8; O2SAT 99
--- NOTE | 2022-05-30 15:39 | ED.SKABFB ---
HPI - Skin/Abscess/Foreign Bdy General Chief complaint: Extremity Problem,Nontraumatic Stated complaint: splinter rt foot Time Seen by Provider: 05/30/22 15:50 Source: patient and RN notes reviewed Mode of arrival: ambulatory Limitations: no limitations History of Present Illness HPI narrative: 71-year-old female presents concern for splinter in the pedal aspect of her right foot. Reports she got the splinter yesterday while she was walking on a wooden deck barefoot. MD complaint: foreign body Related Data Home Medications Medication Instructions Recorded Confirmed famotidine 20 mg tablet 20 mg PO DAILY PRN Acid Reflux 11/13/19 05/29/22 letrozole 2.5 mg tablet 2.5 mg PO DAILY 11/13/19 05/29/22 bioflavonoids 1,000 mg tablet 1,000 mg PO DAILY 12/03/19 05/29/22 albuterol sulfate 90 mcg/actuation 1 inh inhalation Q4H 11/23/20 05/29/22 aerosol inhaler aspirin 227 mg-acetaminophen 194 2 tablet PO Q6H PRN Migraine 11/23/20 05/29/22 mg-caffeine 33 mg tablet (Vanquish) Headache amino acids cap PO 01/26/22 05/29/22 Allergies Allergy/AdvReac Type Severity Reaction Status Date / Time Antihistamines - Alkylamine Allergy Unknown ANXIETY Verified 05/30/22 15:45 codeine AdvReac Unknown Nausea and Verified 05/30/22 15:45 Vomiting hydrocodone AdvReac Unknown NAUSEA AND Verified 05/30/22 15:45 VOMITING Review of Systems Review of Systems: CONSTITUTIONAL: Denies malaise, chills, sweats, or fever. SKIN: Reports splinter in the pedal aspect of right foot MUSCULOSKELETAL: Denies muscle skeletal pain NEUROLOGIC: Denies numbness, weakness All systems reviewed & are unremarkable except as noted in HPI and below PMFSH Past Medical History Medical History Anxiety Encounter for immunization Fibromyalgia H/O Sjogren's disease Hypothyroidism Insomnia Lymphedema Malignant neoplasm of upper-outer quadrant of right female breast Mixed hyperlipidemia Family History Family History Father Depression Family history of coronary artery disease Hyperlipemia Heart attack Mother Family history of arthritis Heart attack Social History Social History Smoking packs per day: 2 Smoking cigarettes per day: 40.0 Years smoked: 23 Smoking pack-years: 46.00 Smoking status: Former smoker Tobacco type: cigarettes Second hand tobacco smoke exposure: No Smoking end date: 02/25/99 Alcohol intake: never Substance use: current Substance use type: marijuana Other substance usage details: medical marijuana Lack of Transportation: No Lack of Food: Never True Current Housing: I Have Housing Concerned About Future Housing: No Difficulty Paying Gas/Electric Bills: No Difficulty Paying for Meds: No Currently Unemployed: No Education: Master's Degree or Higher Difficulty w/ Childcare or Family Care: No Living arrangements: with family Occupation/Education: retired Gender identity (if verbalized by the patient): Female Sexual Orientation (if Verbalized by the Patient): Straight or Heterosexual Spiritual care concerns: No Agree to blood products: Yes Comments At time of signature, agree with nursing past medical, surgical, social and family history. There is no relevant family history pertinent to the presenting complaint Exam Narrative: GENERAL: Well-appearing, well-nourished, and in no acute distress. HEAD: Normocephalic, atraumatic. EYES: PERRLA, conjunctivae clear ENT: Mucous membranes moist. NECK: Supple. No lymphadenopathy CHEST: Clear to auscultation. No respiratory distress. HEART: Regular rate and rhythm. SKIN: Warm, dry. Dark foreign body visible pedal aspect of the right foot at the ball of the foot without direct opening skin. No surrounding erythema, edema, induration noted NEURO: Alert and oriented x3. PSY
[2022-05-30] MEDS: LIDOCAINE/PRILOCAINE CREAM 2.5-2.5% TUBE 1 EACH TOPICAL (15:58)
--- NOTE | 2022-05-30 16:45 | PC.NURSE ---
PT HAS FOOT SOAKING AT THIS TIME
[2022-05-30 17:00] VITALS: BP 138/78; PULSE 88; RESP 16; O2SAT 99
[2022-05-30] MEDS: LIDOCAINE HCL 1% LOCAL INJ 10 ML VIAL 2 ML INFILTRATE (17:13)
== END 2022-05-30 17:00 | disposition home or self-care (01) ==
PROVIDERS: Emergency Provider Nurse Practitioner; PCP Family Medicine
DX: S90.851A Superficial foreign body, right foot, initial encounter (principal); W45.8XXA Other foreign body or object entering through skin, initial encounter; Z87.891 Personal history of nicotine dependence; M79.7 Fibromyalgia; E03.9 Hypothyroidism, unspecified; E78.2 Mixed hyperlipidemia; Z85.3 Personal history of malignant neoplasm of breast; M35.00 Sjogren syndrome, unspecified; Z79.82 Long term (current) use of aspirin
CPT/HCPCS: 28190; 99212; G0463

== ENCOUNTER 2022-06-01 13:46 | Outpatient (CLI) | payer MEDICARE, SELFPAY ==
[2022-06-01 20:03] LABS: Alanine Aminotransferase 17 U/L (6-35); Albumin Level 4.2 g/dL (3.5-5.1); Alkaline Phosphatase 83 U/L (38-126); Anion Gap 1 mmol/L (8-16); Aspartate Amino Transferase 28 U/L (14-36); Bilirubin,Total 0.4 mg/dL (0.2-1.3); Blood Urea Nitrogen 19 mg/dL (7-17); Calcium 9.4 mg/dL (8.4-10.2); Carbon Dioxide 36 mmol/L (22-30); Chloride 100 mmol/L (98-107); Estimated Glomerular Filt Rate 55; Glucose 116 mg/dL (65-110); Sodium 137 mmol/L (137-145)
[2022-06-01 20:11] LABS: Appearance Urine Turbid (Clear); Bacteria Urine None Seen /hpf; Bilirubin Urine Negative (Negative); Blood Urine 1+ (Negative); Color Urine Dark Yellow (Yellow); Glucose Urine UA Negative (Negative); Ketones Urine Negative (Negative); Leukocyte Esterase Ur Trace LEU/UL (Negative); Nitrate Urine Negative (Negative); Non Pathogenic Casts 0-2; Protein Urine Negative (Negative); RBC Urine 21-50 /hpf (0-2); Specific Grav Ur 1.018 (1.001-1.035); Squamous Epithelial Cell Urine None seen /hpf (Few); Urobilinogen Urine 0.2 mg/dL (<2.0); WBC Urine 0-5 /hpf
[2022-06-01 20:19] LABS: Add Urine Microscopic? YES
[2022-06-01 20:29] LABS: Thyroid Stimulating Hormone Reflex 0.366 uIU/mL (0.465-4.68)
[2022-06-01 22:55] LABS: Free T4 Free Thyroxine Reflex 1.33 ng/dL (0.78-2.19)
== END 2022-06-01 13:47 | disposition home or self-care (01) ==
LOC: ANHGOSHLAB 13:48
PROVIDERS: PCP Family Medicine; Visit Provider Family Medicine
DX: N18.30 Chronic kidney disease, stage 3 unspecified (principal); E03.9 Hypothyroidism, unspecified
CPT/HCPCS: 36415; 80053; 81001; 84439; 84443; 84480

== ENCOUNTER 2022-06-14 14:28 | Outpatient (CLI) | payer MEDICARE, SELFPAY ==
--- NOTE | ~2022-06-14 | MM_ITS ---
EXAMINATION: MM screening maria a BI w teresa HISTORY: Screening mammogram, history of right breast cancer TECHNIQUE: Craniocaudal and mediolateral oblique 3-D tomosynthesis images were obtained and synthetic 2-D images were generated. CAD analysis was submitted and interpreted. COMPARISON: 06/12/2021, 06/28/2020, 12/15/2019 BREAST PARENCHYMAL COMPOSITION: There are scattered areas of fibroglandular density. FINDINGS: RIGHT BREAST: Stable lumpectomy changes are noted in the right breast No suspicious mass, calcificati on, or architectural distortion are identified to suggest malignancy. There has been no suspicious in terval change. LEFT BREAST: An asymmetry is present in the posterior third of the outer breast 7 cm from the nipple on the craniocaudal view. IMPRESSION: 1. Left breast asymmetry. 2. Additional mammographic views and possible breast ultrasound are recommended. BI-RADS Category 0: Incomplete: Needs additional imaging evaluation. Reviewed, dictated and finalized at location A. IMPRESSION: 1. Left breast asymmetry. 2. Additional mammographic views and possible breast ultrasound are recommended . BI-RADS Category 0: Incomplete: Needs additional imaging evaluation.
== END 2022-06-14 14:29 | disposition home or self-care (01) ==
PROVIDERS: PCP Family Medicine; Visit Provider Internal Medicine Hematology & Oncology
DX: Z12.31 Encounter for screening mammogram for malignant neoplasm of breast (principal); R92.8 Other abnormal and inconclusive findings on diagnostic imaging of breast
CPT/HCPCS: 77063; 77067

== ENCOUNTER 2022-07-16 12:50 | Outpatient (CLI) | payer MEDICARE, SELFPAY ==
--- NOTE | ~2022-07-16 | MM_ITS ---
EXAMINATION: MM diagnostic maria a LT w teresa HISTORY: Left breast asymmetry on screening mammogram TECHNIQUE: Additional 3-D tomosynthesis images of the left breast were performed and synthetic 2-D im ages were generated. CAD analysis was submitted and interpreted. COMPARISON: 06/14/2022, 06/12/2021, 06/28/2020, 04/22/2018 BREAST PARENCHYMAL COMPOSITION: There are scattered areas of fibroglandular density. FINDINGS: There is a small oil cyst in the posterior third of the upper outer quadrant of the left br east corresponding to the mammographic asymmetry on screening mammogram. No suspicious mass, calcific ation, or architectural distortion are identified. IMPRESSION: 1. No mammographic evidence of malignancy. 2. Recommend routine screening mammography in one year. BI-RADS Category 2: Benign finding(s). Reviewed, dictated and finalized at location A.
== END 2022-07-16 12:51 | disposition home or self-care (01) ==
LOC: ANHIMG 12:52
PROVIDERS: PCP Family Medicine; Visit Provider Internal Medicine Hematology & Oncology
DX: R92.8 Other abnormal and inconclusive findings on diagnostic imaging of breast (principal)
CPT/HCPCS: 77061; 77065; G0279

== ENCOUNTER 2022-10-02 12:38 | Outpatient (CLI) | payer MEDICARE, SELFPAY ==
[2022-10-02 12:55] LABS: Basophils Absolute Auto 0.1 K/mm3 (0.0-0.1); Basophils Percent Auto 0.8 % (0.2-1.2); Eosinophils Absolute Auto 0.3 K/mm3 (0-0.3); Eosinophils Percent Auto 4.4 % (0-4.4); Hematocrit 39.8 % (37.0-47.0); Hemoglobin 13.5 g/dL (12.0-15.0); Immature Granulocyte Absolute 0.02 K/mm3 (0.00-0.031); Immature Granulocyte Percent A 0.3 % (0-0.5); Lymphocytes Percent Auto 18.7 % (18.3-44.2); Mean Corpuscular HGB Conc 33.9 g/dl (32-36); Mean Corpuscular Hemoglobin 32.4 pg (26-34); Mean Corpuscular Volume 95.4 fl (80-100); Mean Platelet Volume 8.8 fl (7.4-10.4); Monocytes Absolute Auto 0.6 K/mm3 (0.1-0.6); Monocytes Percent Auto 8.6 % (2.6-8.5); Neutrophils Absolute Auto 4.3 K/mm3 (1.3-6.7); Neutrophils Percent Auto 67.2 % (45.5-73.1); Platelet Count Result 267 k/mm3 (150-375); Red Blood Count 4.17 M/mm3 (4.2-5.4); Red Cell Distribution Width 13.3 % (11.5-14.5); White Blood Count 6.4 K/mm3 (4.5-10.0)
[2022-10-02 14:35] LABS: Alanine Aminotransferase 15 U/L (6-35); Albumin Level 4.1 g/dL (3.5-5.1); Alkaline Phosphatase 83 U/L (38-126); Anion Gap 5 mmol/L (8-16); Aspartate Amino Transferase 29 U/L (14-36); Bilirubin,Total 0.3 mg/dL (0.2-1.3); Blood Urea Nitrogen 23 mg/dL (7-17); Calcium 9.2 mg/dL (8.4-10.2); Carbon Dioxide 30 mmol/L (22-30); Chloride 99 mmol/L (98-107); Estimated Glomerular Filt Rate 49; Glucose 101 mg/dL (65-110); Sodium 134 mmol/L (137-145)
[2022-10-02 14:39] LABS: Free T4 Free Thyroxine 1.56 ng/mL (0.78-2.19)
[2022-10-02 14:45] LABS: Erythrocyte Sedimentation Rate 20 mm/hr (0-20)
[2022-10-08 07:35] LABS: CA 15-3 21 U/mL (<32)
== END 2022-10-02 12:39 | disposition home or self-care (01) ==
LOC: ANHLAB 12:40
PROVIDERS: Nurse Practitioner Gerontology; PCP Family Medicine; Visit Provider Internal Medicine Hematology & Oncology
DX: R41.3 Other amnesia (principal); C50.411 Malignant neoplasm of upper-outer quadrant of right female breast; Z17.0 Estrogen receptor positive status [ER+]
CPT/HCPCS: 36415; 80053; 82607; 82746; 84439; 84443; 85025; 85652; 86038; 86300

== ENCOUNTER 2022-11-01 10:22 | Emergency (ER) | payer MEDICARE, SELFPAY ==
--- NOTE | 2022-11-01 10:27 | ED.NAVMDI ---
HPI - Nausea/Vomiting/Diarrhea General Chief complaint: Nausea/Vomiting/Diarrhea Stated complaint: Blood in vomit Time Seen by Provider: 11/01/22 10:27 Source: patient Mode of arrival: ambulatory Limitations: no limitations History of Present Illness HPI Narrative: Patient is 72-year-old female that presents with possible blood in vomit. Patient is currently undergoing cancer treatment and states she normally vomits in the morning. States that today it looked like there were blood clots in vomit. States her normal vomited the morning is just yellow bile but today there was food and tinged reddish pink. Upon examination of emesis, blueberry skins were found which was determined to be what patient thought was blood clots. Related Data Home Medications Medication Instructions Recorded Confirmed famotidine 20 mg tablet 20 mg PO DAILY PRN Acid Reflux 11/13/19 11/01/22 letrozole 2.5 mg tablet 2.5 mg PO DAILY 11/13/19 11/01/22 bioflavonoids 1,000 mg tablet 1,000 mg PO DAILY 12/03/19 11/01/22 albuterol sulfate 90 mcg/actuation 1 inh inhalation Q4H 11/23/20 11/01/22 aerosol inhaler aspirin 227 mg-acetaminophen 194 2 tablet PO Q6H PRN Migraine 11/23/20 11/01/22 mg-caffeine 33 mg tablet (Vanquish) Headache amino acids 1 cap PO DIRECTED 01/26/22 11/01/22 Allergies Allergy/AdvReac Type Severity Reaction Status Date / Time Antihistamines - Alkylamine Allergy Unknown ANXIETY Verified 11/01/22 10:35 codeine AdvReac Unknown Nausea and Verified 11/01/22 10:35 Vomiting hydrocodone AdvReac Unknown NAUSEA AND Verified 11/01/22 10:35 VOMITING Review of Systems Review of Systems: All systems reviewed & are unremarkable except as noted in HPI and below Constitutional: Constitutional: Denies body ache(s), Denies chills, Denies fatigue, Denies fever(s), Denies headache(s), Denies malaise and Denies weakness Eyes: Eyes: Denies blurry vision, Denies irritation and Denies loss of vision ENT: Denies otalgia, Denies headache(s), Denies nasal discharge, Denies sinus pain and Denies sore throat Cardiovascular: Cardiovascular: Denies chest pain, Denies irregular heart rhythm and Denies dyspnea Respiratory: Respiratory: Denies dyspnea Gastrointestinal: Gastrointestinal: Denies abdominal pain, Denies melena, Denies hematochezia, Denies diarrhea, Reports nausea and Reports vomiting Musculoskeletal: Musculoskeletal: Denies back pain, Denies myalgias and Denies arthralgias Integumentary/Breasts: Skin/Breast: Denies pruritus and Denies rash Neurologic: Denies headache(s), Denies loss of vision and Denies weakness Psychiatric: Psychiatric: Reports no additional psychiatric complaints Endocrine: Endocrine: Denies fatigue PMFSH Past Medical History Medical History Anxiety Encounter for immunization Fibromyalgia H/O Sjogren's disease Hypothyroidism Insomnia Lymphedema Malignant neoplasm of upper-outer quadrant of right female breast Mixed hyperlipidemia Family History Family History Father Depression Family history of coronary artery disease Hyperlipemia Heart attack Mother Family history of arthritis Heart attack Social History Social History Smoking packs per day: 2 Smoking cigarettes per day: 40.0 Years smoked: 23 Smoking pack-years: 46.00 Smoking status: Former smoker Tobacco type: cigarettes Second hand tobacco smoke exposure: No Smoking end date: 02/25/99 Alcohol intake: never Substance use: current Substance use type: marijuana Other substance usage details: medical marijuana Lack of Transportation: No Lack of Food: Never True Current Housing: I Have Housing Concerned About Future Housing: No Difficulty Paying Gas/Electric Bills: No Difficulty Paying for Meds: No Currently Unemployed: No Education: [employer]
[2022-11-01 10:30] VITALS: BP 129/111; PULSE 64; RESP 16; TEMP 36.4; O2SAT 99
[2022-11-01 11:02] VITALS: BP 124/92; PULSE 95
== END 2022-11-01 11:02 | disposition home or self-care (01) ==
PROVIDERS: Emergency Provider Nurse Practitioner Family; PCP Family Medicine
DX: R11.2 Nausea with vomiting, unspecified (principal); Z87.891 Personal history of nicotine dependence; F12.90 Cannabis use, unspecified, uncomplicated; M79.7 Fibromyalgia; E03.9 Hypothyroidism, unspecified; E78.2 Mixed hyperlipidemia; Z85.3 Personal history of malignant neoplasm of breast; M35.00 Sjogren syndrome, unspecified; Z79.82 Long term (current) use of aspirin
CPT/HCPCS: 99211; G0463

== ENCOUNTER 2023-02-28 12:46 | Outpatient (CLI) | payer MEDICARE, SELFPAY ==
--- NOTE | ~2023-02-28 | US_ITS ---
EXAMINATION: US carotid duplex BI DATE: 02/28/2023 14:02 INDICATION: Cerebrovascular disease TECHNIQUE: Grayscale, color Doppler, and pulsed Doppler images of the cervical carotid arteries were obtained. The degree of vessel stenosis is placed in one of the following categories: normal, <50%, 5 0-69%, >=70% but less than near-occlusion, near-occlusion, or total occlusion. Note that percent sten osis relative to normal distal artery lumen diameter is indirectly measured from velocity measurement s as described by Dany, et al. Radiology 2003; 229:340-346. COMPARISON: None. FINDINGS: RIGHT: The right common carotid artery (CCA) peak systolic velocity (PSV) is 190 cm/s. The right internal ca rotid artery (ICA) PSV is 92 cm/s. The right ICA end-diastolic velocity (EDV) is 24 cm/s. The right I CA/CCA PSV ratio is 0.5. Grayscale and color Doppler images yield an estimate of <50% diameter reduct ion from plaque in the ICA. The external carotid artery (ECA) PSV is 67 cm/s. There is antegrade flow in the right vertebral artery. LEFT: The left CCA PSV is 74 cm/s. The left ICA PSV is 95 cm/s. The left ICA EDV is 35 cm/s. The left ICA/C CA PSV ratio is 1.3. Grayscale and color Doppler images yield an estimate of <50% diameter reduction from plaque in the ICA. The left internal carotid artery is tortuous. The ECA PSV is 106 cm/s. There is antegrade flow in the left vertebral artery. IMPRESSION: 1. <50% stenosis in the right internal carotid artery. 2. <50% stenosis in the tortuous left internal carotid artery. Reviewed, dictated and finalized at location A. [facility]
== END 2023-02-28 12:47 | disposition home or self-care (01) ==
PROVIDERS: PCP Family Medicine; Visit Provider Nurse Practitioner Gerontology
DX: I63.89 Other cerebral infarction (principal); I65.23 Occlusion and stenosis of bilateral carotid arteries
CPT/HCPCS: 93880

== ENCOUNTER 2023-03-15 12:38 | Outpatient (CLI) | payer MEDICARE, SELFPAY ==
--- NOTE | 2023-03-15 | ECHO_ITS ---
Patient Info Name: Alda Singh Age: 72 years : 1950 Gender: Female Ht: 64 in Wt: 150 lbs BSA: 1.77 m2 HR: 90 bpm BP: 169 / 94 mmHg Technical Quality: Fair Exam Date: 03/15/2023 1:06 PM Exam Location: Echo Lab Patient Status: Outpatient Admit Date: 03/15/2023 Staff Ordering Physician: Haylee, Karen Neumann NP Battery Plate Remover: Sujey Funk RDCS Attending Provider: Haylee, Karen Neumann NP Referring Physician: Haylee WHITNEY; Exam Type: CA echo doppler w bubble study Study Info Indications - cerebral infarction Complete two-dimensional, color flow and Doppler transthoracic echocardiogram is performed with agitated saline. Contrast/Agitated Saline Contrast/Ag. Saline: Agitated Saline Amount: 20.00 ml Administered By: Kandy Grossman RDCS Existing IV Access: No New IV Access: Left Site Condition: IV removed Summary 1. Left ventricular chamber dimension is normal. 2. Left ventricular systolic function is normal, estimated at 60-65%. 3. The left ventricular diastolic function is grade I diastolic dysfunction. 4. E/e' 9 is minimally elevated. 5. Global longitudinal strain is normal at -17.2%. 6. Left atrial chamber dimension is mildly enlarged. 7. There is mild aortic valve sclerosis. 8. There is trace mitral valve regurgitation. 9. There is mild tricuspid valve regurgitation. 10. No pulmonary hypertension, estimated pulmonary arterial systolic pressure is 32 mmHg. Left Ventricle E/e' 9 is minimally elevated. Global longitudinal strain is normal at -17.2%. Left ventricular chamber dimension is normal. Left ventricular systolic function is normal, estimated at 60-65%. The left ventricular diastolic function is grade I diastolic dysfunction. Right Ventricle Right ventricular chamber dimension is normal. Right ventricular systolic function is normal. Left Atria Left atrial chamber dimension is mildly enlarged. Right Atria Right atrial chamber dimension is normal. Atrial Septum Agitated saline injection with and without valsalva maneuver opacified right side cardiac chambers without shunt to left side cardiac chambers. Intact interatrial septum visualized by 2D and agitated saline imaging. Aortic Valve The aortic valve is trileaflet. There is mild aortic valve sclerosis. There is no aortic valve stenosis. There is no aortic valve regurgitation. Pulmonic Valve There is no pulmonic regurgitation. Mitral Valve There is no mitral valve stenosis. There is trace mitral valve regurgitation. Tricuspid Valve There is mild tricuspid valve regurgitation. No pulmonary hypertension, estimated pulmonary arterial systolic pressure is 32 mmHg. Pericardium/Pleural There is no pericardial effusion. Inferior Vena Cava Normal inferior vena cava with >50% collapse upon inspiration consistent with normal right atrial pressure, 5 mmHg. Aorta The aortic root size at the sinus of Valsalva is normal. Left Ventricular Outflow Tract Name Value Normal LVOT 2D LVOT Diameter 2.0 cm LVOT Doppler LVOT Peak Gradient 4 mmHg LVOT Mean Gradient 3 mmHg LVOT VTI
== END 2023-03-15 12:39 | disposition home or self-care (01) ==
LOC: ANHLAB 12:39
PROVIDERS: PCP Family Medicine; Visit Provider Nurse Practitioner Gerontology
DX: I63.89 Other cerebral infarction (principal); R93.1 Abnormal findings on diagnostic imaging of heart and coronary circulation; R94.31 Abnormal electrocardiogram [ECG] [EKG]; I35.8 Other nonrheumatic aortic valve disorders; I34.0 Nonrheumatic mitral (valve) insufficiency; I07.1 Rheumatic tricuspid insufficiency
CPT/HCPCS: 93306; 96375

== ENCOUNTER 2023-03-21 09:24 | Outpatient (CLI) | payer MEDICARE, SELFPAY ==
--- NOTE | ~2023-03-21 | CT_ITS ---
CT of the Abdomen and Pelvis: Indication: Abdominal pain Technique: 2.5 mm axial scans were obtained through the abdomen and pelvis following intravenous adm inistration of 100 cc of Omnipaque 350. Dose reduction technique was used on this scan by utilizing a utomated exposure control and iterative reconstruction technique. The dose-length product (DLP) was 6 16.80 mGy-cm. COMPARISON: 05/30/2020 Findings: Scans through the lung bases demonstrate probable focal chronic scarring in the right midd le lobe. Minimal intrahepatic biliary prominence may be related to prior cholecystectomy. Several tiny probabl e hepatic cysts are present. The spleen, pancreas, right adrenal gland, and kidneys are within normal limits. Suspected left adrenal nodule, stable from prior exam. There are atherosclerotic calcificati ons of the aorta. No lymphadenopathy. No bowel obstruction or bowel wall thickening. There is no evidence to suggest acute appendicitis. Images through the pelvis were performed. Urinary bladder unremarkable. No pelvic mass identified. No ascites. Impression: No acute abnormality. Chronic findings, as above, stable from prior exam. Reviewed, dictated and finalized at location . BAKER Impression: No acute abnormality. Chronic findings, as above, stable from prior exam.
[2023-03-21 11:03] LABS: Estimated Glomerular Filt Rate 49
== END 2023-03-21 09:25 | disposition home or self-care (01) ==
PROVIDERS: PCP Family Medicine; Visit Provider Nurse Practitioner
DX: R10.9 Unspecified abdominal pain (principal)
CPT/HCPCS: 74177; Q9967

== ENCOUNTER 2023-04-02 09:37 | Outpatient (CLI) | payer MEDICARE, SELFPAY ==
[2023-04-02 09:55] LABS: Basophils Percent Auto 0.6 % (0.2-1.2); Eosinophils Absolute Auto 0.4 K/mm3 (0-0.3); Eosinophils Percent Auto 8.6 % (0-4.4); Hematocrit 39.8 % (37.0-47.0); Hemoglobin 13.3 g/dL (12.0-15.0); Immature Granulocyte Absolute 0.01 K/mm3 (0.00-0.031); Immature Granulocyte Percent A 0.2 % (0-0.5); Lymphocytes Absolute Auto 1.26 K/mm3 (0.9-3.2); Lymphocytes Percent Auto 25.7 % (18.3-44.2); Mean Corpuscular HGB Conc 33.4 g/dl (32-36); Mean Corpuscular Hemoglobin 31.3 pg (26-34); Mean Corpuscular Volume 93.6 fl (80-100); Mean Platelet Volume 9.1 fl (7.4-10.4); Monocytes Absolute Auto 0.4 K/mm3 (0.1-0.6); Monocytes Percent Auto 7.9 % (2.6-8.5); Neutrophils Absolute Auto 2.8 K/mm3 (1.3-6.7); Platelet Count Result 264 k/mm3 (150-375); Red Blood Count 4.25 M/mm3 (4.2-5.4); Red Cell Distribution Width 13.4 % (11.5-14.5); White Blood Count 4.9 K/mm3 (4.5-10.0)
[2023-04-02 11:38] LABS: Cholesterol 274 mg/dL (0-200); HDL Direct 49 mg/dL; Triglycerides 165 mg/dL (<150)
[2023-04-02 11:49] LABS: LDL Cholesterol Direct 174 mg/dL
[2023-04-02 12:17] LABS: Alanine Aminotransferase 9 U/L (6-35); Albumin Level 4.1 g/dL (3.5-5.1); Alkaline Phosphatase 78 U/L (38-126); Anion Gap 5 mmol/L (8-16); Aspartate Amino Transferase 30 U/L (14-36); Bilirubin,Total 0.4 mg/dL (0.2-1.3); Blood Urea Nitrogen 20 mg/dL (7-17); Calcium 9.5 mg/dL (8.4-10.2); Carbon Dioxide 30 mmol/L (22-30); Chloride 106 mmol/L (98-107); Estimated Glomerular Filt Rate 55; Glucose 104 mg/dL (65-110); Potassium 3.8 mmol/L (3.4-5.0); Sodium 141 mmol/L (137-145)
[2023-04-05 06:31] LABS: CA 15-3 21 U/mL (<32)
== END 2023-04-02 09:38 | disposition home or self-care (01) ==
LOC: ANHLAB 09:39
PROVIDERS: Nurse Practitioner Gerontology; PCP Family Medicine; Visit Provider Internal Medicine Hematology & Oncology
DX: C50.411 Malignant neoplasm of upper-outer quadrant of right female breast (principal); Z17.0 Estrogen receptor positive status [ER+]
CPT/HCPCS: 36415; 80053; 80061; 85025; 86300

== ENCOUNTER 2023-04-23 03:27 | Day surgery (SDC) | payer MEDICARE, SELFPAY ==
[2023-03-29 15:18] VITALS: BMI 25.7
--- NOTE | 2023-04-19 14:25 | SUR.PREOP ---
Patient called regarding upcoming procedure. Reviewed preop instructions, appointment times, and procedure prep.
[2023-04-23 09:26] VITALS: BP 124/80; PULSE 85; RESP 20; TEMP 36.8; O2SAT 98; BMI 26.8
[2023-04-23] MEDS: LACTATED RINGERS 1,000 ML 150 ML IV CONT (09:40)
--- NOTE | 2023-04-23 09:47 | WPDANESEPPF ---
Anes - Initial Pre Proc Eval Procedure: Operation Date: 04/23/23 10:30 Proposed Procedures p Esophagogastroduodenoscopy & Colonoscopy - Puneet Carter MD Date/Time: 04/23/23 09:47 Surgeon: Puneet Carter MD Pre Op Diagnosis: abdom.pain,change in bowel habit,dysphagia Patient Data Age: 72 Gender: F Height: 1.63 m Weight: 70.8 kg Last Vital Signs Temp 36.8 C 04/23/23 09:26 Pulse 85 04/23/23 09:26 Resp 20 04/23/23 09:26 BP 124/80 04/23/23 09:26 Pulse Ox 98 04/23/23 09:26 O2 Del Method Room Air 04/23/23 09:26 Allergies Allergy/AdvReac Type Severity Reaction Status Date / Time Antihistamines - Alkylamine Allergy Unknown ANXIETY Verified 04/23/23 09:24 codeine AdvReac Unknown Nausea and Verified 04/23/23 09:24 Vomiting hydrocodone AdvReac Unknown NAUSEA AND Verified 04/23/23 09:24 VOMITING Home Medications Medication Instructions Recorded Confirmed Type famotidine 20 mg tablet 20 mg PO DAILY PRN Acid Reflux 11/13/19 04/03/23 History letrozole 2.5 mg tablet 2.5 mg PO DAILY 11/13/19 04/03/23 History bioflavonoids 1,000 mg tablet 1,000 mg PO DAILY 12/03/19 04/03/23 History albuterol sulfate 90 mcg/actuation 1 inh inhalation Q4H PRN Shortness 11/23/20 04/03/23 History aerosol inhaler Of Breath aspirin 227 mg-acetaminophen 194 2 tablet PO Q6H PRN Migraine 11/23/20 04/03/23 History mg-caffeine 33 mg tablet (Vanquish) Headache Spiriva Respimat 2.5 mcg/actuation 2 puff inhalation DAILY #4 grams 09/26/22 04/03/23 Rx solution for inhalation (tiotropium bromide) levothyroxine 100 mcg tablet 100 mcg PO DAILY #90 tabs 09/27/22 04/03/23 Rx (Synthroid) ondansetron 4 mg disintegrating See Rx Instructions .Route 12/26/22 04/03/23 Rx tablet .COMPLEX #100 tabs diazepam 5 mg tablet (Valium) 5 mg PO TID PRN muscle spasm #90 03/15/23 04/03/23 Rx tabs Patient hx anesthesia problems: none Family hx anesthesia problems: none Results Review: All pre-operative results and documents have been reviewed as part of the pre-operative evaluation. FORMERLY [facility], [facility] Past Medical History Medical History Anxiety Dysphagia Encounter for immunization Fibromyalgia Functional abdominal pain syndrome H/O Sjogren's disease Hypothyroidism Insomnia Lymphedema Malignant neoplasm of upper-outer quadrant of right female breast Mixed hyperlipidemia Family History Family History Father Depression Family history of coronary artery disease Hyperlipemia Heart attack Mother Family history of arthritis Heart attack Social History Social History Smoking packs per day: 2 Smoking cigarettes per day: 40.0 Years smoked: 25 Smoking pack-years: 50.00 Smoking status: Former smoker Tobacco type: cigarettes Second hand tobacco smoke exposure: No Smoking end date: 02/25/99 Alcohol intake: never Substance use: current Substance use type: marijuana Other substance usage details: Marijuana Regularly Lack of Transportation: No Lack of Food: Never True Current Housing: I Have Housing Concerned About Future Housing: No Difficulty Paying Gas/Electric Bills: No Difficulty Paying for Meds: No Currently Unemployed: No Education: Master's Degree or Higher Difficulty w/ Childcare or Family Care: No Living arrangements: with family Occupation/Education: retired Gender identity (if verbalized by the patient): Female Sexual Orientation (if Verbalized by the Patient): Straight or Heterosexual Spiritual care concerns: No Agree to blood products: Yes Anes - Eval Final PreProcedure Day of Procedure 04/23/23 09:47 Patient weight: overweight Heart: regular rate and rhythm Lungs: clear to auscultation Airway: Mallampati scale class II Neurological: alert and oriented La
--- NOTE | 2023-04-23 10:15 | PM.HPGS ---
History of Present Illness History of Present Illness Consent: Risks, benefits, and alternatives have been discussed and questions answered. Patient agrees to proceed with procedure. Chief complaint: abdom.pain,change in bowel habit,dysphagia Narrative: Alda Singh is a 72 year old female here for egd and colonoscopy, had breast cancer on letrozole with some nausea she thinks could be part of side effect, also recently some dysphagia. She has chronic abdominal pain and constipation, last colonoscopy 2019 Review of Systems Constitutional: Constitutional: Denies headache(s) and Denies weakness Eyes: Eyes: Denies blurry vision ENT: Reports Normal hearing present, Denies headache(s) and Denies neck pain Cardiovascular: Cardiovascular: Denies chest pain and Denies dyspnea Respiratory: Respiratory: Denies dyspnea Gastrointestinal: Gastrointestinal: Reports no additional gastrointestinal complaints Genitourinary: Genitourinary: Denies dysuria Musculoskeletal: Musculoskeletal: Denies neck pain Integumentary/Breasts: Skin/Breast: Denies dry skin Neurologic: Reports Normal hearing present, Denies headache(s) and Denies weakness Psychiatric: Psychiatric: Denies anxiety Endocrine: Endocrine: Denies change in body appearance Hematologic/Lymphatic: Hematologic/Lymphatic: Denies easy bleeding Allergic/Immunologic: Allergic/Immunologic: Denies urticaria PMFSH Past Medical History Medical History Anxiety Dysphagia Encounter for immunization Fibromyalgia Functional abdominal pain syndrome H/O Sjogren's disease Hypothyroidism Insomnia Lymphedema Malignant neoplasm of upper-outer quadrant of right female breast Mixed hyperlipidemia Family History Family History Father Depression Family history of coronary artery disease Hyperlipemia Heart attack Mother Family history of arthritis Heart attack Social History Social History Smoking packs per day: 2 Smoking cigarettes per day: 40.0 Years smoked: 25 Smoking pack-years: 50.00 Smoking status: Former smoker Tobacco type: cigarettes Second hand tobacco smoke exposure: No Smoking end date: 02/25/99 Alcohol intake: never Substance use: current Substance use type: marijuana Other substance usage details: Marijuana Regularly Lack of Transportation: No Lack of Food: Never True Current Housing: I Have Housing Concerned About Future Housing: No Difficulty Paying Gas/Electric Bills: No Difficulty Paying for Meds: No Currently Unemployed: No Education: Master's Degree or Higher Difficulty w/ Childcare or Family Care: No Living arrangements: with family Occupation/Education: retired Gender identity (if verbalized by the patient): Female Sexual Orientation (if Verbalized by the Patient): Straight or Heterosexual Spiritual care concerns: No Agree to blood products: Yes Meds Home Medications and Allergies Home Medications Medication Instructions Recorded Confirmed Type famotidine 20 mg tablet 20 mg PO DAILY PRN Acid Reflux 11/13/19 04/03/23 History letrozole 2.5 mg tablet 2.5 mg PO DAILY 11/13/19 04/03/23 History bioflavonoids 1,000 mg tablet 1,000 mg PO DAILY 12/03/19 04/03/23 History albuterol sulfate 90 mcg/actuation 1 inh inhalation Q4H PRN Shortness 11/23/20 04/03/23 History aerosol inhaler Of Breath aspirin 227 mg-acetaminophen 194 2 tablet PO Q6H PRN Migraine 11/23/20 04/03/23 History mg-caffeine 33 mg tablet (Vanquish) Headache Spiriva Respimat 2.5 mcg/actuation 2 puff inhalation DAILY #4 grams 09/26/22 04/03/23 Rx solution for inhalation (tiotropium bromide) levothyroxine 100 mcg tablet 100 mcg PO DAILY #90 tabs 09/27/22 04/03/23 Rx (Synthroid) ondansetron 4 mg disintegrating See Rx Instructions .Route 12/26/22 04/03/23 Rx
--- NOTE | 2023-04-23 10:20 | SUR.OPER ---
EGD: START-1021, END-1026. COLON: START, END
[2023-04-23 10:46] VITALS: BP 132/80; PULSE 69; RESP 22; O2SAT 96
[2023-04-23 10:56] VITALS: BP 157/88; PULSE 60; RESP 24; O2SAT 97
[2023-04-23 11:06] VITALS: BP 124/78; PULSE 66; RESP 22; O2SAT 98
== END 2023-04-23 11:22 | disposition home or self-care (01) ==
PROVIDERS: PCP Family Medicine; Visit Provider Internal Medicine Gastroenterology
PROC: 0DJ08ZZ Inspection of Upper Intestinal Tract, Via Natural or Artificial Opening Endoscopic (ICD-10-PCS; CPT 43235; principal; 2023-04-23 10:30)
DX: R10.9 Unspecified abdominal pain (principal); R13.10 Dysphagia, unspecified; K59.00 Constipation, unspecified; K57.30 Diverticulosis of large intestine without perforation or abscess without bleeding; K64.8 Other hemorrhoids; Z85.3 Personal history of malignant neoplasm of breast; E78.2 Mixed hyperlipidemia; E03.9 Hypothyroidism, unspecified; Z87.891 Personal history of nicotine dependence
CPT/HCPCS: 45378; 88305; J2704; J7120

== ENCOUNTER 2023-09-16 14:09 | Outpatient (CLI) | payer MEDICARE, SELFPAY ==
--- NOTE | ~2023-09-16 | MM_ITS ---
EXAMINATION: MM screening maria a BI w teresa HISTORY: Screening TECHNIQUE: Craniocaudal and mediolateral oblique 3-D tomosynthesis images were obtained and synthetic 2-D images were generated. CAD analysis was submitted and interpreted. COMPARISON: Comparison to multiple prior studies sequentially, with oldest reviewed study dated 03/2019. BREAST PARENCHYMAL COMPOSITION: Not dense: There are scattered areas of fibroglandular density. FINDINGS: There is no evidence of suspicious mass, calcification, or architectural distortion to sugg est malignancy in either breast. There has been no suspicious interval change. IMPRESSION: 1. No mammographic evidence of malignancy. 2. Recommend routine screening mammography in one year. BI-RADS Category 1: Negative Reviewed, dictated and finalized at location B.
== END 2023-09-16 14:10 | disposition home or self-care (01) ==
PROVIDERS: PCP Family Medicine; Visit Provider Internal Medicine Hematology & Oncology
DX: Z12.31 Encounter for screening mammogram for malignant neoplasm of breast (principal)
CPT/HCPCS: 77063; 77067

== ENCOUNTER 2023-12-12 11:05 | Outpatient (CLI) | payer MEDICARE, SELFPAY | END 2023-12-12 11:06 | disposition home or self-care (01) | PROVIDERS: PCP Family Medicine; Visit Provider Nurse Practitioner Gerontology | DX: R13.10 Dysphagia, unspecified (principal); G70.00 Myasthenia gravis without (acute) exacerbation | CPT/HCPCS: 36415; 99212; G0463 ==

== ENCOUNTER 2024-02-03 13:00 | Outpatient (CLI) | payer MEDICARE, SELFPAY ==
[2024-02-03 16:38] LABS: Alanine Aminotransferase 11 U/L (6-35); Albumin Level 4.4 g/dL (3.5-5.1); Alkaline Phosphatase 84 U/L (38-126); Anion Gap 6 mmol/L (4-12); Aspartate Amino Transferase 58 U/L (14-36); Bilirubin,Total 0.4 mg/dL (0.2-1.3); Blood Urea Nitrogen 29 mg/dL (7-17); Calcium 9.5 mg/dL (8.4-10.2); Carbon Dioxide 28 mmol/L (22-30); Chloride 105 mmol/L (98-107); Cholesterol 233 mg/dL (0-200); Estimated Glomerular Filt Rate > 60; Glucose 101 mg/dL (65-110); HDL Direct 51 mg/dL; Sodium 139 mmol/L (137-145); Triglycerides 203 mg/dL (<150)
[2024-02-03 16:49] LABS: LDL Cholesterol Direct 115 mg/dL
[2024-02-03 17:02] LABS: Free T4 Free Thyroxine 1.75 ng/dL (0.78-2.19)
[2024-02-03 17:07] LABS: Thyroid Stimulating Hormone 0.044 uIU/mL (0.465-4.680)
== END 2024-02-03 13:01 | disposition home or self-care (01) ==
LOC: ANHLAB 13:02
PROVIDERS: Student in an Organized Health Care Education/Training Program; PCP Family Medicine; Visit Provider Family Medicine
DX: E03.9 Hypothyroidism, unspecified (principal); E78.2 Mixed hyperlipidemia; R53.83 Other fatigue
CPT/HCPCS: 36415; 80053; 80061; 84439; 84443

== ENCOUNTER 2024-09-18 10:03 | Outpatient (CLI) | payer MEDICARE, SELFPAY ==
--- NOTE | ~2024-09-18 | MM_ITS ---
EXAMINATION: MM screening maria a BI w teresa HISTORY: Screening TECHNIQUE: Craniocaudal and mediolateral oblique 3-D tomosynthesis images were obtained and synthetic 2-D images were generated. CAD analysis was submitted and interpreted. COMPARISON: Comparison to multiple prior studies sequentially, with oldest reviewed study dated 11/26. BREAST PARENCHYMAL COMPOSITION: Not dense: There are scattered areas of fibroglandular density. FINDINGS: There is no evidence of suspicious mass, calcification, or architectural distortion to sugg est malignancy in either breast. There has been no suspicious interval change. IMPRESSION: 1. No mammographic evidence of malignancy. 2. Recommend routine screening mammography in one year. BI-RADS Category 1: Negative Reviewed, dictated and finalized at location A.
--- OUTSIDE RECORDS SUMMARY | 2024-09-18 10:10 | XMS_ITS | Clinical Summary ---
Author Organization [facility] [employer] Address [address] [facility] [place] [address] Care Team Providers Care Millwright Apprentice Name Role Phone Cate Scott MD Primary Care Provider [phone] Source Comments [facility] [employer],non-[facility] Affiliates and Associated Physician Practices is amultiple site organization consisting of ambulatory clinics and hospital sitesin [place], [place], [place] and [place]. This disclosure is being madepursuant to the Care Everywhere program and may not contain all information available regarding this patient. Last updated 17.[facility] [employer] Social History Tobacco Use Types Packs/Day Years Used Date Smoking Tobacco: Never Assessed Comments Unknown Sex and Gender Information Value Date Recorded Sex Assigned at Not on file Legal Sex Female 11:00 PM CDT Gender Identity Not on file Sexual Orientation Not on file Plan of Treatment Health Maintenance Due Date Last Done Comments BONE DENSITY TESTING 1950 COLOGUARD (AGES 45-75) - COL ON CA SCREENING 1950 COLON MONITORING 1951 COLONOSCOPY - COLON CA SCREENING 1951 CT COLONOGRAPHY - COLON CA SCREENING 1950 Colorectal Cancer Screening 1950 FIT - COLON CA SCREENING 1951 FLEX SIG - COLON CA SCREENING 1950 LIPID TESTING 1950 HEPATITIS C SCREENING 08/01/1969 DTAP/TDAP/TD VACCINES (1 - Tdap) 08/05/1970 PNEUMOCOCCAL VACCINE 50+ (1 of 1 - PCV) 08/05/2001 ZOSTER VACCINE (1 of 2) 08/05/2001 MAMMOGRAM 05/12/2020 05/12/2018, 04/22/2018 COVID-19 VACCINE (2023-2 5 season) 2023 DEPRESSION SCREENING 02/26/2024 MEDICARE AWV CALENDAR YEAR 2024 INFLUENZA VACCINE (#1) 2024 Respiratory Syncytial Virus (RSV) Vaccine Pt: or over 60 yrs (1 - 1-dose 75+ series) 08/05/2026 HEPATITIS B VACCINE Aged Out No longe r eligible based on patient's age to complete this topic HIB VACCINE Aged Out No longer eligi ble based on patient's age to complete this topic HPV VACCINE Aged Out No longer eligi ble based on patient's age to complete this topic MENINGOCOCCAL (Group B) VACCINE SHARED DECISION-MAKING Aged Out No longer eligible based on patient's age to complete this topic MENINGOCOCCAL GROUPS A/C/Y/W VACCINE Aged Out No longer eligible b ased on patient's age to complete this topic Insurance [facility] MEDICARE ADV [facility] MEDICARE ADV AETNA MEDICARE ADV SELF PAY NO INSURANCE Member Subscriber Plan / Payer (Ef fective for All Dates) Name:Priscila Stephens Member ID:Not on file Relation to Subscriber:Not on file Name:PRISCILA STEPHENS Subscriber ID:Not on file Address: [address] [place] [address] Payer ID:Not on file Group ID:Not on file Type:Self Pay Address: [place], [place] AETNA MEDICARE ADV SELF PAY NO INSURANCE Member Subscriber Plan / Payer (Ef fective for All Dates) Name:Priscila Stephens Member ID:Not on file Relation to Subscriber:Not on file Name:PRISCILA STEPHENS Subscriber ID:Not on file Address: [address] [place] [address] Payer ID:Not on file Group ID:Not on file Type:Self Pay Address: [place], [place] AETNA MEDICARE ADV SELF PAY NO INSURANCE Member Subscriber Plan / Payer (Ef fective for All Dates) Name:Priscila Stephens Member ID:Not on file Relation to Subscriber:Not on file Name:PRISCILA STEPHENS Subscriber ID:Not on file Address: [address] [place] [address] Payer ID:Not on file Group ID:Not on file Type:Self Pay Address: [place], [place] Care Teams Millwright Apprentice Relationship Specialty Start Date End Date Cate Scott MD [address] [place] [address] PCP - General Family Medicine 06/16/18
--- OUTSIDE RECORDS SUMMARY | 2024-09-18 10:10 | XMS_ITS | Encounter Summary ---
Author Organization [facility] Address [address] [place] [address] Care Team Providers Care Brick And Block Mason Name Role Phone Cate Scott MD Primary Care Provider [phone] Encounter Details Date Type Department Care Team (Late Contact Info) Description 08/14/2018 Chart Note [facility] Radiation Therapy [address] [place] [address] [place] [address] [place] [address] Social History Tobacco Use Types Packs/Day Years Used Date Smoking Tobacco: Former Cigarettes 1.5 25 1 976 - 2001 Smokeless Tobacco: Never Alcohol Use Standard Drinks/Week Comments No 0 (1 standard drink = 0.6 oz pur e alcohol) Comments No Sex and Gender Information Value Date Recorded Sex Assigned at Not on file Legal Sex Female 5:39 AM TRIMMER AND REINFORCER Gender Identity Not on file Sexual Orientation Not on file documented as of this encounter Plan of Treatment Upcoming Encounters Date Type Department Care Team (Late Contact Info) Description 04/14/2025 1:00 PM TRIMMER AND REINFORCER Office Visit [facility] Oncology and Hematology - [address] [facility] [address] [place] [address] Leonard Orellana MD [address] [facility] [address] [place] [address] documented as of this encounter Visit Diagnoses Not on filedocumented in this encounter Care Teams Brick And Block Mason Relationship Specialty Start Date End Date Cate Scott MD [address] [place] [address] PCP - General 01/16/08 documented as of this encounter
--- OUTSIDE RECORDS SUMMARY | 2024-09-18 10:10 | XMS_ITS | Clinical Summary ---
Author Organization [facility] Address [address] [place] [address] Phone Care Team Providers Care Railroad Car Letterer Name Role Phone Cate Scott MD Primary Care Provider [phone] Allergies Active Allergy Reactions Criticality Noted Date Comments Antihistamines, Chlorpheniramine-Type Anxiety 07/31/2018 Codeine Vomiting 07/31/2018 Medications diazePAM (VALIUM) 5 MG Tablet Take 5 mg by mouth. Active glucosamine-rain droitin 500-400 MG Capsule Take 1 Cap by mouth. Active levothyroxine (SYNTHROID) 100 MCG Tablet 05/11/2018 Active liothyronine (CYTOMEL) 5 MCG Tablet Take 5 mcg by mouth. Active Multiple Vitamin (MULTI-VITAMINS) Tablet Take 1 Tab by mouth. Active Aspirin 81 MG Tablet Take 81 mg by mouth daily. Active metaxalone (SKELAXIN) 800 MG Tablet Take 800 mg by mouth 3 times daily as needed. Active famotidine (PEPCID) 20 MG Tablet Take 20 mg by mouth 2 times daily. Active CALCIUM-MAGNESIU M-ZINC PO Take by mouth. Active B Dbgmduj-Cutjfm-E A (B-COMPLEX PO) Take by mouth. Active Bioflavonoids (BIOFLAVONOID-10 00 PO) Take by mouth. Active ferrous sulfate 325 (65 Fe) MG Tablet Take 325 mg by mouth daily. Active letrozole (FEMARA) 2.5 MG TabletIndication s:Malignant neoplasm of right breast, stage 1, estrogen receptor positive (HCC),Postmenopa usal state Take 1 Tab by mouth daily 90 Tab 3 10/20/2018 Active Active Problems Problem Noted Date Diagnosed Date Malignant neoplasm of right breast, stage 1, estrogen receptor positive 08/07/2018 Postmenopausal state 08/07/2018 Family History Medical History Relation Name Comments Seizures Brother Heart Attack Father Relation Name Status Comments Brother Father Mother Alive Social History Tobacco Use Types Packs/Day Years Used Date Smoking Tobacco: Former Cigarettes 2 20 Smokeless Tobacco: Never Alcohol Use Standard Drinks/Week Comments Never 0 (1 standard drink = 0.6 oz pur e alcohol) AUDIT-C Answer Date Recorded Frequency of Alcohol Consumption Never 07/31/2018 Average Number of Drinks Not on file 019 Frequency of Binge Drinking Not on file 07/2018 Comments No Sex and Gender Information Value Date Recorded Sex Assigned at Not on file Legal Sex Female 2:19 PM CDT Gender Identity Not on file Sexual Orientation Not on file Last Filed Vital Signs Vital Sign Reading Time Taken Comments Blood Pressure 145/95 10/20/2018 1:23 PM CDT Pulse 76 10/20/2018 1:23 PM CDT Temperature 36.1 C (97 F) 10/20/2018 1:23 PM CDT Respiratory Rate 20 10/20/2018 1:23 PM CDT Oxygen Saturation 97% 10/20/2018 1:23 PM CDT Inhaled Oxygen Concentration - - Weight 95.4 kg (210 lb 6.4 oz) 10/20/2018 1:23 P M CDT Height 162.6 cm (5' 4) 10/20/2018 1:23 PM CDT Body Mass Index 36.12 10/20/2018 1:23 PM CDT Plan of Treatment Health Maintenance Due Date Last Done Comments Hepatitis C Virus (HCV) Screening 1950 Pneumococcal Immunization (5 0+ years) (1 of 2 - PCV) 08/05/1970 Zoster Immunization (1 of 2) 08/05/1970 Cologuard 08/05/1996 Colonoscopy 08/05/1996 Colorectal Cancer Screening 08/05/1996 Immunochemical Fecal Occult Blood 08/05/1996 Respiratory Syncytial Virus (RSV) Immunization (Adult) (1 - Risk 60-74 years 1-dose series) 2011 SARS-COV-2 Immunization ( season) 2023 12/30/2020, 05/05/2020, 04/13/2020 Influenza Immunization (#1) 2024 DTaP/Tdap/Td Immunization Discontinued 04/16/2015 TdaP Immunization Completed 04/16/2015 DEXA Bone Density Discontinued 04/22/2018 Hepatitis B Immunization Aged Out No longer eligible based on patient's age to complete this topic Human Papillomavirus (HPV) Immunization Aged Out No longer eligible based on patient's age to complete this topic Meningococcal Immunization (ACWY) Aged Out No longer eligible based on patient's age to complete this topic Rotavirus Immunization Aged Out No lo nger eligible based on patient's age to complete this topic Procedures Procedure Name Priority Date/Time Associated Diagnosis Comments DEXA SCAN Routine 04/22/2018 from Last 3 Months or Most Recently Relevant to Health Maintenance Results * DEXA SCAN (04/22/2018) Anatomical Region Laterality Modality Other us Cate Scott MD [place] - IMAGING Final Result from Last 3 Months or Most Recently Relevant to Health Maintenance Care Teams Railroad Car Letterer Relationship Specialty Start Date End Date Cate Scott MD [address] [place] [address] PCP - General Family Medicine 07/24/18
--- OUTSIDE RECORDS SUMMARY | 2024-09-18 10:10 | XMS_ITS | Referral Summary ---
Author Organization [facility] Address [address] [place] [address] Phone Care Team Providers Care Nerve Specialist Name Role Phone Cate Scott MD Primary Care Provider [phone] Karen Leach HOUSEKEEPING ASSOCIATE Unavailable [phone] Allergies Active Allergy Reactions Criticality Noted Date Comments Antihistamines - Piperidine Anxiety Low 07/31/2018 Antihistimine Anxiety Low 05/22/2018 Panic attacks Codeine Nausea And Vomiting Low 05/22/2018 Hydrocodone Vomiting Low 01/07/2020 Opioids - Morphine Analogues Nausea & Vomiting Low 08/10/2022 Medications multivitamin tabletIndications: Vitamin Deficiency Prevention Take 1 tablet by mouth nightly Active levothyroxine (SYNTHROID) 100 mcg tabletIndications: hypothyroidism Take 1 tablet (100 mcg total) by mouth erisa attorney before breakfast 0 Active letrozole (FEMARA) 2.5 mg tabletIndications: estrogen suppressant Take 1 tablet (2.5 mg total) by mouth daily before breakfast 0 Active fluoride, sodium, 1.1 % gelIndications:Den stanley Plaque Prevention Take 1 Dose by mouth nightly 9 Active famotidine (PEPCID) 20 mg tabletIndications: Heartburn Take 1 tablet (20 mg total) by mouth nightly Active diazePAM (VALIUM) 5 mg tablet Take 1 tablet (5 mg total) by mouth every 8 (eight) hours as needed (vertigo) 0 Active ASA-acetaminophen- caff-buffers 227-194-33 mg tablet Take 2 tablets by mouth every 8 (eight) hours as needed (pain) Active albuterol HFA (PROVENTIL HFA,VENTOLIN HFA,PROAIR HFA) 90 mcg/actuation inhaler Inhale 1 puff every 8 (eight) hours as needed for wheezing or shortness of breath 1 Active ondansetron ODT (ZOFRAN-ODT) 4 mg disintegrating tablet Take 1 tablet (4 mg total) by mouth every 8 (eight) hours as needed for nausea or vomiting 1 Active Spiriva Respimat 1.25 mcg/actuation inhalerIndications :Bronchospasm Prevention with COPD Inhale 1 puff 2 (two) times a day 1 Active simethicone (GAS-X ORAL) Take by mouth as needed (gas) Active BIOFLAVONOIDS, CITRUS ORALIndications:fo r supplement Take by mouth nightly Active UNABLE TO FINDIndications:fo r supplement for constipation every morning Clement Mcmillan Active venlafaxine XR (EFFEXOR-XR) 75 mg 24 hr capsuleIndications :Anxiety with Depression Take 1 capsule (75 mg total) by mouth nightly 3 Active venlafaxine (EFFEXOR) 37.5 mg tabletIndications: Generalized Anxiety Disorder Take 1 tablet (37.5 mg total) by mouth every morning Active UNABLE TO FINDIndications:fo r supplement 2 (two) times a day Med Name: Kidney Enzymes Active UNABLE TO FINDIndications:fo r supplement 3 (three) times a day with meals Med Name: Stomach enzymes Active PreviDent 5000 Dry Mouth 1.1 % paste 3 Active Spiriva Respimat 2.5 mcg/actuation inhaler 3 Active venlafaxine XR (EFFEXOR-XR) 37.5 mg 24 hr capsule 3 Active hyoscyamine ER (LEVBID) 0.375 mg 12 hr tablet Take 1 tablet (0.375 mg total) by mouth every 12 (twelve) hours 4 Active Active Problems Problem Noted Date Diagnosed Date Neck mass 11/06/2023 Cerebrovascular disease 06/26/2023 Dysphagia 06/26/2023 Memory disturbance 07/25/2022 Essential tremor 07/25/2022 Painful orthopaedic hardware 07/16/2022 Ptosis of right eyelid 05/16/2021 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 Gait disorder 03/02/2020 Dizziness and giddiness 03/02/2020 Closed extraarticular fractu re of distal end of right radius 01/06/2020 Overview (01/06/2020): Added automatically from request for surgery [id number] Hypothyroidism 07/11/2013 Overview (06/01/2016): HYPOTHYROIDISM NOS Immunizations Immunization Administration Dates Next Due Influenza, Quadrivalent, Hig h Dose, Preservative Free, Intrr 11/30/2019 Tdap 04/16/2015 Social History Tobacco Use Types Packs/Day Years Used Date Smoking Tobacco: Former Cigarettes 1.5 26 1 975 - 2000 Smokeless Tobacco: Never Tobacco Cessation:Counseling Given: Not Answered Alcohol Use Standard Drinks/Week Comments Not Currently 0 (1 standard drink = 0.6 oz pur e alcohol) AUDIT-C Answer Date Recorded Q1: How often do you have a drink containing alcohol? Never 11/06/2023 Q2: How many drinks containi ng alcohol do you have on a typical day when you are drinking? Patient does not drink Q3: How often do you have si x or more drinks on one occasion? Never 11/06/2023 Personal Safety Answer Date Recorded Have you ever been in or are you currently in a harmful physical or emotional relationship or is someone making you feel afraid or unsafe? Denies 08/13/2022 Comments No Sex and Gender Information Value Date Recorded Sex Assigned at Not on file Legal Sex Female 11:56 PM TIE PULLER Gender Identity Not on file Sexual Orientation Not on file Last Filed Vital Signs Vital Sign Reading Time Taken Comments Blood Pressure 160/82 06/09/2024 2:57 PM CDT Pulse 97 06/09/2024 2:57 PM CDT Temperature 36.1 C (97 F) 08/13/2022 11:00 AM CDT Respiratory Rate 25 08/13/2022 10:45 AM CDT Oxygen Saturation 97% 06/09/2024 2:57 PM CDT Inhaled Oxygen Concentration - - Weight 69.9 kg (154 lb) 06/09/2024 2:57 PM CDT Height 157.5 cm (5' 2.01) 06/09/2024 2:57 PM CD T Body Mass Index 28.16 06/09/2024 2:57 PM CDT Plan of Treatment Not on file Medical Devices Implanted Type Area Building Energy Retrofit Technician Device Identifier Shelf Expiration Date Model / Serial / Lot [employer] A-4750.32 Aptus Trilock [id number] 10 Hole Right Distal Volar Radius - S0 - [id number] Implanted:Qty: 1 on 01/11/2020 by Torsten Forman MD at [facility] [place] Plate Right: Radius [employer] A-4750.32 / 0 / [employer] A-5750.10/1 Aptus Trilock 2.5mm 10mm Hexadrive 7 Screw Bone Titanium - S0 - [id number] Implanted:Qty: 1 on 01/11/2020 by Torsten Forman MD at [facility] [place] Screw Right: Radius [employer] A-5750.10/ 1 / 0 / [employer] A-5700.12 Aptus 2.5mm 12mm Cortical Screw Bone - S0 - [id number] Implanted:Qty: 1 on 01/11/2020 by Torsten Forman MD at [facility] [place] Screw Right: Radius [employer] A-5700.12 / 0 / [employer] A-5750.14/1 Aptus 2.5mm 14mm Lock Radius Screw Bone Eli - S0 - [id number] Implanted:Qty: 1 on 01/11/2020 by Torsten Forman MD at [facility] Screw Right: Radius [employer] A-5750.14/ 1 / 0 / [employer] A-5750.16/1 2.5mm 16mm Trilock Hexadrive Wrist Radius Screw Bone - S0 - [id number] Implanted:Qty: 1 on 01/11/2020 by Torsten Forman MD at [facility] [place] Screw Right: Radius [employer] A-5750.16/ 1 / 0 / [employer] A-5700.12 Aptus 2.5mm 12mm Cortical Screw Bone - S0 - [id number] Implanted:Qty: 1 on 01/11/2020 by Torsten Forman MD at [facility] Screw Right: Radius [employer] A-5700.12 / 0 / [employer] A-5700.14 Aptus 2.5mm 14mm Cortical Screw Bone - S0 - [id number] Implanted:Qty: 1 on 01/11/2020 by Torsten Forman MD at [facility] [place] Screw Right: Radius [employer] A-5700.14 / 0 / [employer] A-5700.14 Aptus 2.5mm 14mm Cortical Screw Bone - S0 - [id number] Implanted:Qty: 1 on 01/11/2020 by Torsten Forman MD at [facility] Screw Right: Radius [employer] A-5700.14 / 0 / [employer] A-5750.14/1 Aptus 2.5mm 14mm Lock Radius Screw Bone Eli - S0 - [id number] Implanted:Qty: 1 on 01/11/2020 by Torsten Forman MD at [facility] [place] Screw Right: Radius [employer] A-5750.14/ 1 / 0 / [employer] A-5750.16/1 2.5mm 16mm Trilock Hexadrive Wrist Radius Screw Bone - S0 - [id number] Implanted:Qty: 1 on 01/11/2020 by Torsten Forman MD at [facility] [place] Screw Right: Radius [employer] A-5750.16/ 1 / 0 / [employer] A-5700.20 2.5mm 20mm Cortical Screw Bone - S0 - [id number] Implanted:Qty: 1 on 01/11/2020 by Torsten Forman MD at [facility] Screw Right: Radius [employer] A-5700.20 / 0 / Insurance AETNA MEDICARE AETNA MEDICARE Care Teams Nerve Specialist Relationship Specialty Start Date End Date Cate Scott MD PCP - General Family Medicine 05/18/20 Karen Leach NP Nurse Practitioner Neurology 05/18/20
--- OUTSIDE RECORDS SUMMARY | 2024-09-18 10:10 | XMS_ITS | Clinical Summary ---
Author Organization [facility] Address [address] [place] [address] Phone Care Team Providers Care Marketing And Communications Officer Name Role Phone Cate Scott MD Primary Care Provider [phone] Karen Leach SOLAR ENERGY SYSTEM INSTALLER Unavailable [phone] Allergies Active Allergy Reactions Criticality Noted Date [...] 1 tablet (100 mcg total) by mouth innovations paraprofessional before breakfast 0 Active letrozole (FEMARA) 2.5 [...] (01/06/2020): Added automatically from request for surgery [id number] Hypothyroidism 07/11/2013 Overview (06/01/2016): HYPOTHYROIDISM NOS Immunizations Immunization Administration Dates Next Due Influenza, Quadrivalent, Hig h Dose, Preservative Free, Intrr 11/30/2019 Tdap 04/16/2015 Surgical History Surgery Date Site/Laterality Comments MASTECTOMY, PARTIAL 02/25/2017 - 02/24/2018 Right breat reduction on the left CHOLECYSTECTOMY 02/25/2003 - 02/25/2004 WRIST SURGERY 02/25/2019 - 02/25/2020 Right Medical History Medical History Date Comments Disorder of thyroid Thyroid dise ase, hypothyroidism PONV (postoperative nausea a nd vomiting) x2 in 1960's and mastectomy 2018 Motion sickness Breast cancer (HCC) 2018 s/p R partia l mastectomy , radiation GERD (gastroesophageal reflu x disease) well controlled Vertigo Chronic bronchitis (HCC) with ch ronic cough ORUTSARARMIUT (hard of hearing) right ear deaf Fracture, foot 12/28/2019 left, [place] with a boot Sjogren's disease Lymphedema right arm Asthma Cancer (HCC) Last radiation 2 019 Family History Medical History Relation Name Comments Coronary artery disease Father Jatinder nary artery disease; Heart attack Mother Hypothyroidism Other 1 Family histor y of Hypothyroidism; Thyroid disease Other 2 Family histo ry of Thyroid disease; Anesthesia problems Neg Hx Relation Name Status Comments Father Mother Other 1 Other 2 Social History Tobacco Use Types Packs/Day Years [...] on file Legal Sex Female 11:56 PM DOUGHNUT BATTER MIXER Gender Identity Not on file Sexual Orientation Not on file Obstetrics History Last Filed Vital Signs Vital Sign Reading [...] 06/09/2024 2:57 PM CDT Plan of Treatment Health Maintenance Due Date Last Done Comments Breast Cancer Screening-Mammogram 1950 Colon Cancer Screening-Colonoscopy 1950 Depression Screening 1950 Hepatitis C Screening 1950 Hepatitis B Screening 08/05/1969 Pneumococcal vaccine 65+ (1 of 2 - PCV) 08/05/1970 Zoster Vaccine (1 of 2) 08/05/1970 Well Visit 65+ 08/05/2016 Fall Risk Assessment 08/14/2023 08/13/2022 Osteoporosis Screening-Bone Density Scan 01/10/2024 01/09/2022 Influenza Vaccine (#1) 2024 11/30/2019 DTaP/Tdap/Td Vaccine (2 - Td or Tdap) 04/16/2025 Medical Devices Implanted Type Area Textile Colorist Dyer Device Identifier Shelf Expiration Date Model / Serial / Lot [employer] A-4750.32 Aptus Trilock [id number] 10 Hole Right Distal Volar Radius - S0 - [id number] Implanted:Qty: 1 on 01/11/2020 by Torsten Forman MD at [facility] Plate Right: Radius [employer] A-4750.32 / 0 / [employer] A-5750.10/1 Aptus Trilock 2.5mm 10mm Hexadrive 7 Screw Bone Titanium - S0 - [id number] Implanted:Qty: 1 on 01/11/2020 by Torsten Forman MD at [facility] [place] Screw Right: Radius [employer] A-5750.10/ 1 / 0 / [employer] A-5700.12 Aptus 2.5mm 12mm Cortical Screw Bone - S0 - [id number] Implanted:Qty: 1 on 01/11/2020 by Torsten Forman MD at [facility] [place] Screw Right: Radius [employer] A-5700.12 / 0 / [employer] A-5750.14/1 Aptus 2.5mm 14mm Lock Radius Screw Bone Eli - S0 - [id number] Implanted:Qty: 1 on 01/11/2020 by Torsten Forman MD at [facility] Screw Right: Radius [employer] A-5750.14/ 1 / 0 / [employer] A-5750.16/1 2.5mm 16mm Trilock Hexadrive Wrist Radius Screw Bone - S0 - [id number] Implanted:Qty: 1 on 01/11/2020 by Torsten Forman MD at [facility] [place] Screw Right: Radius [employer] A-5750.16/ 1 / 0 / [employer] A-5700.12 Aptus 2.5mm 12mm Cortical Screw Bone - S0 - [id number] Implanted:Qty: 1 on 01/11/2020 by Torsten Forman MD at [facility] Screw Right: Radius [employer] A-5700.12 / 0 / [employer] A-5700.14 Aptus 2.5mm 14mm Cortical Screw Bone - S0 - [id number] Implanted:Qty: 1 on 01/11/2020 by Torsten Forman MD at [facility] Screw Right: Radius [employer] A-5700.14 / 0 / [employer] A-5700.14 Aptus 2.5mm 14mm Cortical Screw Bone - S0 - [id number] Implanted:Qty: 1 on 01/11/2020 by Torsten Forman MD at [facility] [place] Screw Right: Radius [employer] A-5700.14 / 0 / [employer] A-5750.14/1 Aptus 2.5mm 14mm Lock Radius Screw Bone Eli - S0 - [id number] Implanted:Qty: 1 on 01/11/2020 by Torsten Forman MD at [facility] [place] Screw Right: Radius [employer] A-5750.14/ 1 / 0 / [employer] A-5750.16/1 2.5mm 16mm Trilock Hexadrive Wrist Radius Screw Bone - S0 - [id number] Implanted:Qty: 1 on 01/11/2020 by Torsten Forman MD at [facility] [place] Screw Right: Radius [employer] A-5750.16/ 1 / 0 / [employer] A-5700.20 2.5mm 20mm Cortical Screw Bone - S0 - [id number] Implanted:Qty: 1 on 01/11/2020 by Torsten Forman MD at [facility] [place] Screw Right: Radius [employer] A-5700.20 / 0 / Insurance [facility] MEDICARE [facility] MEDICARE Address: [facility] [id number] [place] [phone] AETNA MEDICARE Care Teams Marketing And Communications Officer Relationship Specialty Start Date End Date Cate Scott MD PCP - General Family Medicine 05/18/20 Karen Leach NP Nurse Practitioner Neurology 05/18/20
--- OUTSIDE RECORDS SUMMARY | 2024-09-18 10:10 | XMS_ITS | Clinical Summary ---
Author Organization [facility] Administrative Offices Address [address] [place] [address] Care Team Providers Care Economic Development Manager Name Role Phone Cate Scott MD Primary Care Provider [phone] Allergies Active Allergy Reactions Criticality Noted Date Comments Antihistamines - Piperidine Anxiety Low 08/01/19 19 Antihistimine Anxiety Low 05/22/2018 Codeine Nausea and Vomiting Low 05/22/2018 Medications levothyroxine 100 mcg tablet 9 Active diazePAM (VALIUM) 5 mg tablet Take 5 mg by mouth every 6 hours as needed for Anxiety. Active multivitamin (DAILY-TRINIDAD) tablet Take 1 Tablet by mouth daily. Active vitamin B complex (B COMPLEX 1 ORAL) Take by mouth. Activ e ASPIRIN-ACETAM INOPHEN-CAFFEI NE ORAL Take by mouth daily at bedtime Patient takes 2 tablets at Bedtime; 227mg of aspirin, 194mg of acetaminophen, 33mg of caffeine . Active famotidine (PEPCID) 20 mg tablet Take 20 mg by mouth. Active BIOFLAVONOIDS ORAL Take by mouth. Activ e PREVIDENT 5000 DRY MOUTH 1.1 % Gel 9 Active tiotropium (SPIRIVA) 18 mcg capsule Take 18 mcg by inhalation daily. Active ondansetron (ZOFRAN) 4 mg Tablet Take 4 mg by mouth every 8 hours as needed for Nausea/Emesis. Active diazePAM (VALIUM) 5 mg tablet Take 1 Tablet (5 mg) by mouth 3 times daily as needed for muscle spasm. 90 Tablet 09/02/2021 5:19 PM CDT 2 Active ondansetron (ZOFRAN ODT) 4 mg Tablet, Rapid Dissolve DISSOLVE 1 TABLET orally every 8 hours As Needed for nausea and vomiting. 20 Tablet 2 02/22/2022 2:22 PM OBSTETRICS AND GYNECOLOGY PROFESSOR 2 Active mupirocin (BACTROBAN) 2 % Ointment Apply twice daily to wounds after cleaning and drying area 22 Gram 01/30/2022 12:57 PM OBSTETRICS AND GYNECOLOGY PROFESSOR 2 Active ondansetron (ZOFRAN ODT) 4 mg Tablet, Rapid Dissolve Place 1 Tablet (4 mg) under tongue every 8 hours as needed for nausea and vomiting. 100 Tablet 2 02/14/2023 2:52 PM OBSTETRICS AND GYNECOLOGY PROFESSOR 3 Active hyoscyamine ER 0.375 mg tablet,extende d release,12 hr Take 1 Tablet (0.375 mg) by mouth every 12 hours. 60 Tablet 3 03/08/2023 3:03 PM OBSTETRICS AND GYNECOLOGY PROFESSOR 4 Active diazePAM (VALIUM) 5 mg tablet Take one tablet (5 MG) orally three times a day as Needed for muscle spasm 90 Tablet 08/12/2023 4:06 PM CDT 4 Active Sodium Fluoride (PreviDent 5000 Dry Mouth) 1.1 % Paste APPLY A THIN RIBBON TO A TOOTHBRUSH. BRUSH THOROUGHLY ONCE DAILY DIRECTED. 100 mL 1 11/27/2023 9:54 AM CDT 4 Active levothyroxine 100 mcg tablet Take 1 Tablet (100 mcg) by mouth daily in the morning except on Sundays 90 Tablet 2 03/10/2024 1:05 PM OBSTETRICS AND GYNECOLOGY PROFESSOR 4 Active levothyroxine 88 mcg tablet Take 1 daily by mouth on Saturday, Saturday, and and 100 mcg other days of week. 90 Tablet 06/30/2024 9:00 AM CDT 5 Active Spiriva Respimat 2.5 mcg/actuation Mist INHALE 2 PUFFS DAILY. 4 Gram 11 08/30/2024 2:43 PM CDT 5 Active diazePAM (VALIUM) 5 mg tablet Take 1 Tablet (5 mg) by mouth 3 times daily as needed for muscle spasm. 90 Tablet 09/03/2024 12:56 PM CDT 5 Active diazePAM (VALIUM) 5 mg tablet Take 1 Tablet (5 mg) by mouth 3 times daily as needed FOR MUSCLE SPASMS. 90 Tablet 06/18/2024 2:30 PM CDT 5 09/02/19 25 Discontinu ed(Reorder ) Active Problems Problem Noted Date Diagnosed Date Chronic cough 06/30/2019 Carcinoma of breast metastat ic to axillary lymph node, right 07/17/2018 Malignant neoplasm of upper- outer quadrant of right breast in female, estrogen receptor positive 06/10/2018 Resolved Problems Problem Noted Date Diagnosed Date Resolved Date Abnormal mammogram of right breast 05/22/2018 07/17/2018 Abnormal ultrasound of breast 05/22/2018 07/17/2018 Sign and symptom in breast 05/22/2018 0 07/17/2018 Encounters Date Type Department Care Team Description 09/09/2024 External Device Data [facility] ABSTRACTION Provider, Abstract 09/08/2024 External Device Data [facility] ABSTRACTION Provider, Abstract 08/18/2024 External Device Data [facility] ABSTRACTION Provider, Abstract 07/28/2024 External Device Data [facility] ABSTRACTION Provider, Abstract 07/16/2024 External Device Data [facility] ABSTRACTION Provider, Abstract 07/15/2024 External Device Data [facility] ABSTRACTION Provider, Abstract 07/14/2024 External Device Data [facility] ABSTRACTION Provider, Abstract from Last 3 Months Social History Tobacco Use Types Packs/Day Years Used Date Smoking Tobacco: Former Cigarettes 1.5 25 1 976 - 2000 Smokeless Tobacco: Never Tobacco Cessation:Counseling Given: Not Answered Alcohol Use Standard Drinks/Week Comments No 0 (1 standard drink = 0.6 oz pur e alcohol) Comments No Sex and Gender Information Value Date Recorded Sex Assigned at Not on file Legal Sex Female 5:39 AM OBSTETRICS AND GYNECOLOGY PROFESSOR Gender Identity Not on file Sexual Orientation Not on file Last Filed Vital Signs Vital Sign Reading Time Taken Comments Blood Pressure 141/88 04/09/2024 1:17 PM OBSTETRICS AND GYNECOLOGY PROFESSOR Pulse 81 04/09/2024 1:14 PM OBSTETRICS AND GYNECOLOGY PROFESSOR Temperature 36.6 C (97.9 F) 04/09/2024 1:14 PM OBSTETRICS AND GYNECOLOGY PROFESSOR Respiratory Rate 16 04/09/2024 1:14 PM OBSTETRICS AND GYNECOLOGY PROFESSOR Oxygen Saturation 96% 04/09/2024 1:14 PM OBSTETRICS AND GYNECOLOGY PROFESSOR Inhaled Oxygen Concentration - - Weight 66.5 kg (146 lb 9.6 oz) 04/09/2024 1:14 P M OBSTETRICS AND GYNECOLOGY PROFESSOR Height 163.8 cm (5' 4.5) 04/11/2021 2:36 PM OBSTETRICS AND GYNECOLOGY PROFESSOR Body Mass Index 24.78 04/11/2021 2:36 PM OBSTETRICS AND GYNECOLOGY PROFESSOR Plan of Treatment Upcoming Encounters Date Type Department Care Team (Late st Contact Info) Description 04/14/2025 1:00 PM OBSTETRICS AND GYNECOLOGY PROFESSOR Office Visit [facility] Oncology and Hematology - Eddie [address] [place] [address] Leonard Orellana MD [address] [place] [address] Health Maintenance Due Date Last Done Comments PNEUMOCOCCAL VACCINE 50+ YEA RS (1 of 2 - PCV) 08/05/1970 ZOSTER VACCINE (1 of 2) 08/05/1970 COLORECTAL SCREENING 08/05/1996 Colorectal Cancer Screening 08/05/1996 FIT-DNA Q 3 years 08/05/1996 FIT/FOBT Q 1 year 08/05/1996 Flex Sig/CT Colonography Q 5 years 08/05/1996 BREAST CANCER SCREENING 09/15/2024 09/16/19 24, 06/28/2020, 12/15/2019, Additional history exists INFLUENZA VACCINE (#1) 2024 0, 12/11/2018, 04/09/2018 DTAP/TDAP/TD VACCINES (2 - T d or Tdap) 04/16/2025 04/16/2015 RSV VACCINE (60+ or ) (1 - 1-dose 75+ series) 08/05/2026 OSTEOPOROSIS SCREENING 01/09/2027 01/09/2022 Procedures Procedure Name Priority Date/Time Associated Diagnosis Comments MAMMO SCREENING BILAT Routine 09/16/2023 7:55 AM CDT XR DEXA BONE DENSITY AXIAL 1 OR MORE SITES Routine 01/09/2022 from Last 3 Months or Most Recently Relevant to Health Maintenance Results * MAMMO SCREENING BILAT (09/16/2023 7:55 AM CDT) Anatomical Region Laterality Modality Breast Bilateral Mammography Leonard Orellana MD MAMMO ORDERABLES Final Result * XR DEXA BONE DENSITY AXIAL 1 OR MORE SITES (01/09/2022) Anatomical Region Laterality Modality Other Leonard Orellana MD DIAGNOSTIC IMAGING ORDERABLES F inal Result from Last 3 Months or Most Recently Relevant to Health Maintenance Insurance AETNA PPO [facility] Medicare Part D AETNA O [facility] Care Teams Economic Development Manager Relationship Specialty Start Date End Date Cate Scott MD [address] [place] [address] PCP - General 01/16/08
--- OUTSIDE RECORDS SUMMARY | 2024-09-18 10:10 | XMS_ITS | Clinical Summary ---
Author Organization [facility] Address [address] [place] [address] Care Team Providers Care Studio Operator Name Role Phone Cate Scott MD Unavailable Cate Scott MD Primary Care Provider [phone] Social History Tobacco Use Types Packs/Day Years Used Date Smoking Tobacco: Never Assessed Comments Unknown Sex and Gender Information Value Date Recorded Sex Assigned at Not on file Legal Sex Female 3:09 PM RESPIRATORY THERAPIST ASSISTANT Gender Identity Not on file Sexual Orientation Not on file Plan of Treatment Health Maintenance Due Date Last Done Comments Colorectal Cancer Screening Colonoscopy (10 Years) 1950 Hepatitis C 08/05/1969 DTaP, Tdap and Td Vaccines ( 1 - Tdap) 08/05/1970 Mammogram Screening 1991 Pneumococcal Vaccine: 50+ Ye ars (1 of 1 - PCV) 08/05/2001 Zoster Vaccines (1 of 2) 08/05/2001 Annual Medicare Wellness Visit 08/05/2016 Dexa Scan (General) 08/05/2016 COVID-19 Vaccine (2023-2 5 season) 2023 RSV Immunization or 60+ Years (1 - 1-dose 75+ series) 08/05/2026 Meningococcal B Vaccine Aged Out No l onger eligible based on patient's age to complete this topic Meningococcal Vaccine Aged Out No priya celia eligible based on patient's age to complete this topic RSV Immunizations Under 20 Months Aged Out No longer eligible based on patient's age to complete this topic Insurance MED REPLACE [facility] MEDICARE Care Teams Studio Operator Relationship Specialty Start Date End Date Cate Scott MD PCP - General FAMILY PRACTICE 02/12/19 Cate Scott MD FAMILY PRACTICE 02/12/19
== END 2024-09-18 10:04 | disposition home or self-care (01) ==
LOC: ANHIMG 10:06
PROVIDERS: PCP Family Medicine; Visit Provider Internal Medicine Hematology & Oncology
DX: Z12.31 Encounter for screening mammogram for malignant neoplasm of breast (principal)
CPT/HCPCS: 77063; 77067

== ENCOUNTER 2024-09-30 11:44 | Outpatient (CLI) | payer MEDICARE, SELFPAY ==
--- OUTSIDE RECORDS SUMMARY | 2024-09-30 12:19 | XMS_ITS | Clinical Summary ---
Author Organization [facility] Administrative Offices Address [address] [place] [address] Care Team Providers Care Specialty Foods Cook Name Role Phone Cate Scott MD Primary Care Provider [phone] Allergies Active Allergy Reactions Criticality Noted Date [...] vomiting. 20 Tablet 2 02/22/2022 2:22 PM MULTIPLE PRESSURE RIVETER OPERATOR 2 Active mupirocin (BACTROBAN) 2 % Ointment Apply twice daily to wounds after cleaning and drying area 22 Gram 01/30/2022 12:57 PM MULTIPLE PRESSURE RIVETER OPERATOR 2 Active ondansetron (ZOFRAN ODT) 4 mg Tablet, Rapid Dissolve Place 1 Tablet (4 mg) under tongue every 8 hours as needed for nausea and vomiting. 100 Tablet 2 02/14/2023 2:52 PM MULTIPLE PRESSURE RIVETER OPERATOR 3 Active hyoscyamine ER 0.375 mg tablet,extende d release,12 hr Take 1 Tablet (0.375 mg) by mouth every 12 hours. 60 Tablet 3 03/08/2023 3:03 PM MULTIPLE PRESSURE RIVETER OPERATOR 4 Active diazePAM (VALIUM) 5 mg tablet [...] Sundays 90 Tablet 2 03/10/2024 1:05 PM MULTIPLE PRESSURE RIVETER OPERATOR 4 Active Spiriva Respimat 2.5 mcg/actuation Mist INHALE 2 PUFFS DAILY. 4 Gram 11 08/30/2024 2:43 PM CDT 5 Active diazePAM (VALIUM) 5 mg tablet Take 1 Tablet (5 mg) by mouth 3 times daily as needed for muscle spasm. 90 Tablet 09/03/2024 12:56 PM CDT 5 Active levothyroxine 88 mcg tablet Take 1 tablet by mouth daily on Sat, , and and 100mcg other days of week. 90 Tablet 1 09/22/2024 6:16 PM CDT 5 Active levothyroxine 88 mcg tablet Take 1 daily by mouth on Saturday, Saturday, and and 100 mcg other days of week. 90 Tablet 06/30/2024 9:00 AM CDT 5 09/23/19 25 Discontinu ed(Reorder ) diazePAM (VALIUM) 5 mg tablet Take 1 [...] Encounters Date Type Department Care Team Description 09/21/2024 Orders Only [facility] Oncology and Hematology - Eddie Quincy Blum [address] [address] Leonard Orellana MD 09/09/2024 External Device Data [facility] ABSTRACTION Provider, [...] on file Legal Sex Female 5:39 AM MULTIPLE PRESSURE RIVETER OPERATOR Gender Identity Not on file Sexual Orientation Not on file Last Filed Vital Signs Vital Sign Reading Time Taken Comments Blood Pressure 141/88 04/09/2024 1:17 PM MULTIPLE PRESSURE RIVETER OPERATOR Pulse 81 04/09/2024 1:14 PM MULTIPLE PRESSURE RIVETER OPERATOR Temperature 36.6 C (97.9 F) 04/09/2024 1:14 PM MULTIPLE PRESSURE RIVETER OPERATOR Respiratory Rate 16 04/09/2024 1:14 PM MULTIPLE PRESSURE RIVETER OPERATOR Oxygen Saturation 96% 04/09/2024 1:14 PM MULTIPLE PRESSURE RIVETER OPERATOR Inhaled Oxygen Concentration - - Weight 66.5 kg (146 lb 9.6 oz) 04/09/2024 1:14 P M MULTIPLE PRESSURE RIVETER OPERATOR Height 163.8 cm (5' 4.5) 04/11/2021 2:36 PM MULTIPLE PRESSURE RIVETER OPERATOR Body Mass Index 24.78 04/11/2021 2:36 PM MULTIPLE PRESSURE RIVETER OPERATOR Plan of Treatment Upcoming Encounters Date Type Department Care Team (Late st Contact Info) Description 04/14/2025 1:00 PM MULTIPLE PRESSURE RIVETER OPERATOR Office Visit [facility] Oncology and Hematology [facility] [address] [facility] [address] [place] [address] Leonard Orellana MD [address] [facility] [place] [address] Health Maintenance Due Date Last Done Comments PNEUMOCOCCAL VACCINE 50+ YEA RS (1 of 2 - PCV) 08/05/1970 ZOSTER VACCINE (1 of 2) 08/05/1970 COLORECTAL SCREENING 08/05/1996 Colorectal Cancer Screening 08/05/1996 FIT-DNA Q 3 years 08/05/1996 FIT/FOBT Q 1 year 08/05/1996 Flex Sig/CT Colonography Q 5 years 08/05/1996 INFLUENZA VACCINE (#1) 2024 0, 12/11/2018, 04/09/2018 DTAP/TDAP/TD VACCINES (2 - T d or Tdap) 04/16/2025 04/16/2015 BREAST CANCER SCREENING 09/18/2025 09/19/19 25, 09/16/2023, 06/28/2020, Additional history exists RSV VACCINE (60+ or ) (1 - 1-dose 75+ series) 08/05/2026 OSTEOPOROSIS SCREENING 01/09/2027 01/09/2022 Procedures Procedure Name Priority Date/Time Associated Diagnosis Comments MAMMO SCREENING BILAT Routine 09/18/2024 9:16 AM CDT XR DEXA BONE DENSITY AXIAL 1 OR MORE SITES Routine 01/09/2022 from Last 3 Months or Most Recently Relevant to Health Maintenance Results * MAMMO SCREENING BILAT (09/18/2024 9:16 AM CDT) Anatomical Region Laterality Modality Breast Bilateral Mammography Leonard Orellana MD MAMMO ORDERABLES Final Result * XR DEXA BONE DENSITY AXIAL 1 OR MORE SITES (01/09/2022) Anatomical Region Laterality Modality Other Leonard Orellana MD DIAGNOSTIC IMAGING ORDERABLES F inal Result from Last 3 Months or Most Recently Relevant to Health Maintenance Insurance Medicare Part D AETNA PPO MCR Care Teams Specialty Foods Cook Relationship Specialty Start Date End Date Cate Scott MD [address] [place] [address] PCP - General 01/16/08
--- OUTSIDE RECORDS SUMMARY | 2024-09-30 12:19 | XMS_ITS | Clinical Summary ---
Author Organization [facility] Address [address] [place] [address] Phone Care Team Providers Care Mold Cleaner Name Role Phone Cate Scott MD Primary Care Provider [phone] Allergies Active Allergy Reactions Criticality Noted Date [...] M-ZINC PO Take by mouth. Active B Giiporv-Ddauvb-Z A (B-COMPLEX PO) Take by mouth. Active [...] Laterality Modality Other us Cate Scott MD [place] - IMAGING Final Result from Last 3 Months or Most Recently Relevant to Health Maintenance Care Teams Mold Cleaner Relationship Specialty Start Date End Date Cate Scott MD [address] [place] [address] PCP - General Family Medicine 07/24/18
--- OUTSIDE RECORDS SUMMARY | 2024-09-30 12:19 | XMS_ITS | Clinical Summary ---
Author Organization [facility] Address [address] [place] [address] Phone Care Team Providers Care Superintendent Distribution Name Role Phone Cate Scott MD Primary Care Provider [phone] Karen Leach CONE PICKER Unavailable [phone] Allergies Active Allergy Reactions Criticality Noted Date [...] 1 tablet (100 mcg total) by mouth cheesemaking laborer before breakfast 0 Active letrozole (FEMARA) 2.5 [...] (01/06/2020): Added automatically from request for surgery [id number] Hypothyroidism 07/11/2013 Overview (06/01/2016): HYPOTHYROIDISM NOS Immunizations [...] Chronic bronchitis (HCC) with ch ronic cough [place] (hard of hearing) right ear deaf Fracture, [...] on file Legal Sex Female 11:56 PM HEALTH ANALYTICS CONSULTANT Gender Identity Not on file Sexual Orientation [...] Tdap) 04/16/2025 Medical Devices Implanted Type Area Diplomatic Interpreter/Translator Device Identifier Shelf Expiration Date Model / Serial / Lot Mippin A-4750.32 Aptus Trilock [id number] 10 Hole Right Distal Volar Radius - S0 - [id number] Implanted:Qty: 1 on 01/11/2020 by Torsten oFrman MD at [facility] Plate Right: Radius [employer] A-4750.32 / 0 / [employer] A-5750.10/1 Aptus Trilock 2.5mm 10mm Hexadrive 7 Screw Bone Titanium - S0 - [id number] Implanted:Qty: 1 on 01/11/2020 by Torsten Forman MD at [facility] Screw Right: Radius [employer] A-5750.10/ 1 / 0 / [employer] A-5700.12 Aptus 2.5mm 12mm Cortical Screw Bone - S0 - [id number] Implanted:Qty: 1 on 01/11/2020 by Torsten Forman MD at [facility] [place] Screw Right: Radius [employer] A-5700.12 / 0 / [employer] A-5750.14/1 Aptus 2.5mm 14mm Lock Radius Screw Bone Eli - S0 - [id number] Implanted:Qty: 1 on 01/11/2020 by Torsten Forman MD at [facility] Screw Right: Radius [employer] A-5750.14/ 1 / 0 / [employer] A-5750.16/1 2.5mm 16mm Trilock Hexadrive Wrist Radius Screw Bone - S0 - [id number] Implanted:Qty: 1 on 01/11/2020 by Torsten Forman MD at [facility] [place] Screw Right: Radius [employer] A-5750.16/ 1 / 0 / [employer] A-5700.12 Aptus 2.5mm 12mm Cortical Screw Bone - S0 - [id number] Implanted:Qty: 1 on 01/11/2020 by Torsten Forman MD at [facility] Screw Right: Radius [employer] A-5700.12 / 0 / [employer] A-5700.14 Aptus 2.5mm 14mm Cortical Screw Bone - S0 - [id number] Implanted:Qty: 1 on 01/11/2020 by Torsten Forman MD at [facility] Screw Right: Radius [employer] A-5700.14 / 0 / [employer] A-5700.14 Aptus 2.5mm 14mm Cortical Screw Bone - S0 - [id number] Implanted:Qty: 1 on 01/11/2020 by Torsten Forman MD at [facility] [place] Screw Right: Radius [employer] A-5700.14 / 0 / [employer] A-5750.14/1 Aptus 2.5mm 14mm Lock Radius Screw Bone Eli - S0 - [id number] Implanted:Qty: 1 on 01/11/2020 by Torsten Forman MD at [facility] [place] Screw Right: Radius [employer] A-5750.14/ 1 / 0 / [employer] A-5750.16/1 2.5mm 16mm Trilock Hexadrive Wrist Radius Screw Bone - S0 - [id number] Implanted:Qty: 1 on 01/11/2020 by Torsten Forman MD at [facility] [place] Screw Right: Radius [employer] A-5750.16/ 1 / 0 / [employer] A-5700.20 2.5mm 20mm Cortical Screw Bone - S0 - [id number] Implanted:Qty: 1 on 01/11/2020 by Torsten Forman MD at [facility] [place] Screw Right: Radius [employer] A-5700.20 / 0 / Insurance PENDING SALE TO [facility] MEDICARE AETNA MEDICARE Care Teams Superintendent Distribution Relationship Specialty Start Date End Date Cate Scott MD PCP - General Family Medicine 05/18/20 Karen Leach NP Nurse Practitioner Neurology 05/18/20
--- OUTSIDE RECORDS SUMMARY | 2024-09-30 12:19 | XMS_ITS | Clinical Summary ---
Author Organization [facility] Address [address] [place] [address] Care Team Providers Care Ripsawyer Name Role Phone Cate Scott MD Unavailable Cate Scott MD Primary Care Provider [phone] Social History Tobacco Use Types Packs/Day Years Used Date Smoking Tobacco: Never Assessed Comments Unknown Sex and Gender Information Value Date Recorded Sex Assigned at Not on file Legal Sex Female 3:09 PM SR. LOGISTICS ANALYST Gender Identity Not on file Sexual Orientation [...] to complete this topic Insurance MED REPLACE [facility] MEDICARE Care Teams Ripsawyer Relationship Specialty Start Date End Date Cate Scott MD PCP - General FAMILY PRACTICE 02/12/19 Cate Scott MD FAMILY PRACTICE 02/12/19
--- OUTSIDE RECORDS SUMMARY | 2024-09-30 12:19 | XMS_ITS | Encounter Summary ---
Author Organization [facility] Address [address] [place] [address] Care Team Providers Care Head Of Mobile Name Role Phone Cate Scott MD Primary Care Provider [phone] Encounter Details Date Type Department Care Team (Late Contact Info) Description 08/14/2018 Chart Note [facility] Radiation Therapy [address] [place] [address] [place] [address] [place] [address] Social History Tobacco Use Types Packs/Day Years Used Date Smoking Tobacco: Former Cigarettes 1.5 25 1 976 - 2001 Smokeless Tobacco: Never Alcohol Use Standard Drinks/Week Comments No 0 (1 standard drink = 0.6 oz pur e alcohol) Comments No Sex and Gender Information Value Date Recorded Sex Assigned at Not on file Legal Sex Female 5:39 AM EXECUTIVE CHAIRMAN OF THE BOARD Gender Identity Not on file Sexual Orientation Not on file documented as of this encounter Plan of Treatment Upcoming Encounters Date Type Department Care Team (Late Contact Info) Description 04/14/2025 1:00 PM EXECUTIVE CHAIRMAN OF THE BOARD Office Visit [facility] Oncology and Hematology - Eddie [address] [facility] [address] [place] [address] Leonard Orellana MD [address] [facility] [address] [place] [address] documented as of this encounter Visit Diagnoses Not on filedocumented in this encounter Care Teams Head Of Mobile Relationship Specialty Start Date End Date Cate Scott MD [address] [place] [address] PCP - General 01/16/08 documented as of this encounter
--- OUTSIDE RECORDS SUMMARY | 2024-09-30 12:19 | XMS_ITS | Clinical Summary ---
Author Organization [facility] Address [address] [place] [address] Care Team Providers Care Mail Teller Name Role Phone Cate Scott MD Primary Care Provider [phone] Source Comments [facility],non-[facility] Affiliates and Associated Physician Practices is amultiple site organization consisting of ambulatory clinics and hospital sitesin [place], [place], [place] and [place]. This disclosure is being madepursuant to the Care Everywhere program and may not contain all information available regarding this patient. Last updated 17.[facility] Social History Tobacco Use Types Packs/Day Years [...] patient's age to complete this topic Insurance [facility] MEDICARE ADV [facility] MEDICARE ADV AETNA MEDICARE ADV SELF PAY NO INSURANCE Member Subscriber Plan / Payer (Ef fective for All Dates) Name:Priscila Stephens Member ID:Not on file Relation to Subscriber:Not on file Name:PRISCILA STEPHENS Subscriber ID:Not on file Address: [address] [place] [address] Payer ID:Not on file Group ID:Not on file Type:Self Pay Address: [place], [place] AETNA MEDICARE ADV SELF PAY NO INSURANCE Member Subscriber Plan / Payer (Ef fective for All Dates) Name:Priscila Stephens Member ID:Not on file Relation to Subscriber:Not on file Name:PRISCILA STEPHENS Subscriber ID:Not on file Address: [address] [place] [address] Payer ID:Not on file Group ID:Not on file Type:Self Pay Address: [place], [place] AETNA MEDICARE ADV SELF PAY NO INSURANCE Member Subscriber Plan / Payer (Ef fective for All Dates) Name:Priscila Stephens Member ID:Not on file Relation to Subscriber:Not on file Name:PRISCILA STEPHENS Subscriber ID:Not on file Address: [address] [place] [address] Payer ID:Not on file Group ID:Not on file Type:Self Pay Address: [place], [place] Care Teams Mail Teller Relationship Specialty Start Date End Date Cate Scott MD [address] [place] [address] PCP - General Family Medicine 06/16/18
[2024-09-30 14:07] LABS: Alanine Aminotransferase 14 U/L (6-35); Albumin Level 4.4 g/dL (3.5-5.1); Alkaline Phosphatase 79 U/L (38-126); Anion Gap 7 mmol/L (4-12); Aspartate Amino Transferase 35 U/L (14-36); Bilirubin,Total 0.3 mg/dL (0.2-1.3); Blood Urea Nitrogen 24 mg/dL (7-17); Calcium 9.5 mg/dL (8.4-10.2); Carbon Dioxide 29 mmol/L (22-30); Chloride 103 mmol/L (98-107); Estimated Glomerular Filt Rate > 60; Glucose 97 mg/dL (65-110); Potassium 3.9 mmol/L (3.4-5.0); Sodium 139 mmol/L (137-145); Total Protein 7.5 g/dL (6.3-8.2)
[2024-09-30 14:35] LABS: Thyroid Stimulating Hormone Reflex 0.335 uIU/mL (0.465-4.68)
[2024-09-30 15:29] LABS: Hemoglobin A1C 5.4 % (<5.7)
[2024-09-30 17:14] LABS: Free T4 Free Thyroxine Reflex 1.59 ng/dL (0.78-2.19)
[2024-09-30 19:17] LABS: Total Triiodothyronine (T3) 0.93 NG/ML (0.82-1.58)
== END 2024-09-30 11:45 | disposition home or self-care (01) ==
LOC: ANHLAB 11:45
PROVIDERS: PCP Family Medicine; Visit Provider Family Medicine
DX: Z13.1 Encounter for screening for diabetes mellitus (principal); E03.9 Hypothyroidism, unspecified; E78.2 Mixed hyperlipidemia; R53.83 Other fatigue
CPT/HCPCS: 36415; 80053; 83036; 84439; 84443; 84480

== ENCOUNTER 2025-01-19 10:57 | Outpatient (CLI) | payer MEDICARE, SELFPAY ==
[2025-01-19 11:33] LABS: Hematocrit 43.4 % (37.0-47.0); Hemoglobin 14.5 g/dL (12.0-15.0); Mean Corpuscular HGB Conc 33.4 g/dl (32-36); Mean Corpuscular Hemoglobin 31.9 pg (26-34); Mean Corpuscular Volume 95.4 fl (80-100); Platelet Count Result 228 k/mm3 (150-375); Red Blood Count 4.55 M/mm3 (4.2-5.4); White Blood Count 6.2 K/mm3 (4.5-10.0)
[2025-01-19 12:17] LABS: Alanine Aminotransferase 15 U/L (6-35); Albumin Level 4.7 g/dL (3.5-5.1); Alkaline Phosphatase 82 U/L (38-126); Anion Gap 8 mmol/L (4-12); Aspartate Amino Transferase 32 U/L (14-36); Bilirubin,Total 0.5 mg/dL (0.2-1.3); Blood Urea Nitrogen 23 mg/dL (7-17); Calcium 9.5 mg/dL (8.4-10.2); Carbon Dioxide 28 mmol/L (22-30); Chloride 101 mmol/L (98-107); Cholesterol 258 mg/dL (0-200); Estimated Glomerular Filt Rate > 60; Glucose 102 mg/dL (65-110); HDL Direct 65 mg/dL; Magnesium 2.1 mg/dL (1.6-2.3); Potassium 3.9 mmol/L (3.4-5.0); Sodium 137 mmol/L (137-145); Total Protein 8.0 g/dL (6.3-8.2); Triglycerides 182 mg/dL (<150)
[2025-01-19 12:20] LABS: Iron 92 ug/dL (37-170)
[2025-01-19 12:42] LABS: Percent Iron Saturation 27 % (20-50)
--- OUTSIDE RECORDS SUMMARY | 2025-01-19 12:44 | XMS_ITS | Clinical Summary ---
Author Organization [facility] Administrative Offices Address [address] [place] [address] Care Team Providers Care Play Reader Name Role Phone Cate Scott MD Primary Care Provider Allergies Active Allergy Reactions Criticality Noted Date [...] (B COMPLEX 1 ORAL) Take by mouth. Active ASPIRIN-ACETAMI NOPHEN-CAFFEINE ORAL Take by mouth daily at bedtime [...] vomiting. 20 Tablet 2 02/22/2022 2:22 PM LABOR RELATIONS CONSULTANT 2 Active mupirocin (BACTROBAN) 2 % Ointment Apply twice daily to wounds after cleaning and drying area 22 Gram 01/30/2022 12:57 PM LABOR RELATIONS CONSULTANT 2 Active ondansetron (ZOFRAN ODT) 4 mg Tablet, Rapid Dissolve Place 1 Tablet (4 mg) under tongue every 8 hours as needed for nausea and vomiting. 100 Tablet 2 02/14/2023 2:52 PM LABOR RELATIONS CONSULTANT 3 Active hyoscyamine ER 0.375 mg tablet,extended release,12 hr Take 1 Tablet (0.375 mg) by mouth every 12 hours. 60 Tablet 3 03/08/2023 3:03 PM LABOR RELATIONS CONSULTANT 4 Active diazePAM (VALIUM) 5 mg tablet Take one tablet (5 MG) orally three times a day as Needed for muscle spasm 90 Tablet 08/12/2023 4:06 PM CDT 4 Active Sodium Fluoride (PreviDent 5000 Dry Mouth) 1.1 % Paste APPLY A THIN RIBBON TO A TOOTHBRUSH. BRUSH THOROUGHLY ONCE DAILY DIRECTED. 100 mL 1 11/03/2024 1:22 PM CDT 4 Active levothyroxine 100 mcg tablet Take 1 Tablet (100 mcg) by mouth daily in the morning except on Sundays 90 Tablet 2 03/10/2024 1:05 PM LABOR RELATIONS CONSULTANT 4 Active Spiriva Respimat 2.5 mcg/actuation Mist INHALE 2 PUFFS DAILY. 4 Gram 11 12/08/2024 2:18 PM CDT 5 Active levothyroxine 88 mcg tablet Take 1 Tablet (88 mcg) by mouth daily. 90 Tablet 1 11/03/2024 1:22 PM CDT 5 Active diazePAM (VALIUM) 5 mg tablet Take 1 Tablet (5 mg) by mouth 3 times daily as needed FOR MUSCLE SPASM. 90 Tablet 11/12/2024 12:25 PM CDT 5 Active Active Problems Problem Noted Date Diagnosed [...] Encounters Date Type Department Care Team Description 01/12/2025 External Device Data STL ABSTRACTION Provider, Abstract 11/10/2024 External Device Data ST[facility] ABSTRACTION Provider, Abstract 10/27/2024 External Device Data [facility] ABSTRACTION Provider, Abstract from Last 3 Months Immunizations Immunization Administration Dates Next Due INFLUENZA VACCINE HIGH DOSE TRIVALENT SPLIT VIRUS, (65 YR UP), 0.5ML (PF), IM 11/03/2024 Social History Tobacco Use Types Packs/Day Years Used Date Smoking Tobacco: Former Cigarettes 1.5 25 1 976 - 2000 Smokeless Tobacco: Never Tobacco Cessation:Counseling Given: Not Answered Alcohol Use Standard Drinks/Week Comments No 0 (1 standard drink = 0.6 oz pur e alcohol) Comments No Sex and Gender Information Value Date Recorded Sex Assigned at Not on file Legal Sex Female 5:39 AM LABOR RELATIONS CONSULTANT Gender Identity Not on file Sexual Orientation Not on file Last Filed Vital Signs Vital Sign Reading Time Taken Comments Blood Pressure 141/88 04/09/2024 1:17 PM LABOR RELATIONS CONSULTANT Pulse 81 04/09/2024 1:14 PM LABOR RELATIONS CONSULTANT Temperature 36.6 C (97.9 F) 04/09/2024 1:14 PM LABOR RELATIONS CONSULTANT Respiratory Rate 16 04/09/2024 1:14 PM LABOR RELATIONS CONSULTANT Oxygen Saturation 96% 04/09/2024 1:14 PM LABOR RELATIONS CONSULTANT Inhaled Oxygen Concentration - - Weight 66.5 kg (146 lb 9.6 oz) 04/09/2024 1:14 P M LABOR RELATIONS CONSULTANT Height 163.8 cm (5' 4.5) 04/11/2021 2:36 PM LABOR RELATIONS CONSULTANT Body Mass Index 24.78 04/11/2021 2:36 PM LABOR RELATIONS CONSULTANT Plan of Treatment Upcoming Encounters Date Type Department Care Team (Late st Contact Info) Description 04/14/2025 1:00 PM LABOR RELATIONS CONSULTANT Office Visit [facility] Oncology and Hematology - Eddie [address] [place] [address] [place] [place] [phone] Leonard Orellana MD [address] [facility] [address] [place] [address] Health Maintenance Due Date Last Done Comments PNEUMOCOCCAL VACCINE 50+ YEA RS (1 of 2 - PCV) 08/05/1970 ZOSTER VACCINE (1 of 2) 08/05/1970 COLORECTAL SCREENING 08/05/1996 Colorectal Cancer Screening 08/05/1996 FIT-DNA Q 3 years 08/05/1996 FIT/FOBT Q 1 year 08/05/1996 Flex Sig/CT Colonography Q 5 years 08/05/1996 DTAP/TDAP/TD VACCINES (2 - T d or Tdap) 04/16/2025 04/16/2015 BREAST CANCER SCREENING 09/18/2025 09/19/19, 09/16/2023, 06/28/2020, Additional history exists RSV VACCINE (60+ or ) (1 - 1-dose 75+ series) 08/05/2026 OSTEOPOROSIS SCREENING 01/09/2027 01/09/2022 INFLUENZA VACCINE Completed 11/03/2024, , 12/11/2018, Additional history exists Procedures Procedure Name Priority Date/Time Associated Diagnosis Comments MAMMO SCREENING BILAT Routine 09/18/2024 9:16 AM CDT XR DEXA BONE DENSITY AXIAL 1 OR MORE SITES Routine 01/09/2022 from Last 3 Months or Most Recently Relevant to Health Maintenance Results * MAMMO SCREENING BILAT (09/18/2024 9:16 AM CDT) Anatomical Region Laterality Modality Breast Bilateral Mammography us Leonard Orellana MD MAMMO ORDERABLES Final Result * XR DEXA BONE DENSITY AXIAL 1 OR MORE SITES (01/09/2022) Anatomical Region Laterality Modality Other us Leonard Orellana MD DIAGNOSTIC IMAGING ORDERABLES F inal Result from Last 3 Months or Most Recently Relevant to Health Maintenance Insurance AETNA O [facility] RX AETNA Medicare Part D AETNA PPO [facility] Care Teams Play Reader Relationship Specialty Start Date End Date Cate Scott MD [address] [place] [id number] PCP - General 01/16/08
--- OUTSIDE RECORDS SUMMARY | 2025-01-19 12:44 | XMS_ITS | Encounter Summary ---
Author Organization [facility] Address [address] [place] [address] Care Team Providers Care Interstate Bus Dispatcher Name Role Phone Cate Scott MD Primary Care Provider [phone] Encounter Details Date Type Department Care Team (Late Contact Info) Description 08/14/2018 Chart Note [facility] Radiation Therapy [address] [place] [address] [place] [address] [place] [address] Social History Tobacco Use Types Packs/Day Years Used Date Smoking Tobacco: Former Cigarettes 1.5 25 1 976 - 2001 Smokeless Tobacco: Never Alcohol Use Standard Drinks/Week Comments No 0 (1 standard drink = 0.6 oz pur e alcohol) Comments No Sex and Gender Information Value Date Recorded Sex Assigned at Not on file Legal Sex Female 5:39 AM PLASTICS HEAT WELDER Gender Identity Not on file Sexual Orientation Not on file documented as of this encounter Plan of Treatment Upcoming Encounters Date Type Department Care Team (Late Contact Info) Description 04/14/2025 1:00 PM PLASTICS HEAT WELDER Office Visit [facility] Oncology and Hematology - Eddie [address] [facility] [address] [place] [address] Leonard Orellana MD [address] [facility] [address] [place] [address] documented as of this encounter Visit Diagnoses Not on filedocumented in this encounter Care Teams Interstate Bus Dispatcher Relationship Specialty Start Date End Date Cate Scott MD [address] [place] [address] PCP - General 01/16/08 documented as of this encounter
--- OUTSIDE RECORDS SUMMARY | 2025-01-19 12:44 | XMS_ITS | Clinical Summary ---
Author Organization [facility] Address [address] [place] [address] Care Team Providers Care Bakery Team Leader Name Role Phone Cate Scott MD Unavailable Cate Scott MD Primary Care Provider [phone] Social History Tobacco Use Types Packs/Day Years Used Date Smoking Tobacco: Never Assessed Comments Unknown Sex and Gender Information Value Date Recorded Sex Assigned at Not on file Legal Sex Female 3:09 PM GROCERY STORE ASSOCIATE Gender Identity Not on file Sexual Orientation [...] 08/05/2016 Dexa Scan (General) 08/05/2016 COVID-19 Vaccine (2024-2 6 season) 2024 Influenza Adult (#1) 2024 RSV Immunization or 60+ Years (1 - 1-dose 75+ series) 08/05/2026 Hepatitis A Vaccines Aged Out No long er eligible based on patient's age to complete this topic Meningococcal B Vaccine Aged Out No l onger eligible based on patient's age to complete this topic Meningococcal Vaccine Aged Out No priya celia eligible based on patient's age to complete this topic RSV Immunizations Under 20 Months Aged Out No longer eligible based on patient's age to complete this topic Insurance MED REPLACE [facility] MEDICARE Care Teams Bakery Team Leader Relationship Specialty Start Date End Date Cate Scott MD PCP - General FAMILY PRACTICE 02/12/19 Cate Scott MD FAMILY PRACTICE 02/12/19
--- OUTSIDE RECORDS SUMMARY | 2025-01-19 12:44 | XMS_ITS | Clinical Summary ---
Author Organization [facility] Address [address] [facility] [place] [address] Care Team Providers Care Washery Boss Name Role Phone Cate Scott MD Primary Care Provider [phone] Source Comments [facility],non-[facility] Affiliates and Associated Physician Practices is amultiple site organization consisting of ambulatory clinics and hospital sitesin [place], [place], [place] and [place]. This disclosure is being madepursuant to the Care Everywhere program and may not contain all information available regarding this patient. Last updated 17.[facility] Social History Tobacco Use Types Packs/Day Years [...] of 2) 08/05/2001 MAMMOGRAM 05/12/2020 05/12/2018, 04/22/2018 DEPRESSION SCREENING 02/26/2024 MEDICARE AWV CALENDAR YEAR 2024 COVID-19 VACCINE (2024-2 6 season) 2024 INFLUENZA VACCINE (#1) 2024 Respiratory Syncytial [...] patient's age to complete this topic Insurance [facility] MEDICARE ADV [facility] MEDICARE ADV AETNA MEDICARE ADV SELF PAY NO INSURANCE Member Subscriber Plan / Payer (Ef fective for All Dates) Name:Priscila Stephens Member ID:Not on file Relation to Subscriber:Not on file Name:PRISCILA STEPHENS Subscriber ID:Not on file Address: [address] [place] [address] Payer ID:Not on file Group ID:Not on file Type:Self Pay Address: [place], [place] AETNA MEDICARE ADV SELF PAY NO INSURANCE Member Subscriber Plan / Payer (Ef fective for All Dates) Name:Priscila Stephens Member ID:Not on file Relation to Subscriber:Not on file Name:PRISCILA STEPHENS Subscriber ID:Not on file Address: [address] [place] [address] Payer ID:Not on file Group ID:Not on file Type:Self Pay Address: [place], [place] AETNA MEDICARE ADV SELF PAY NO INSURANCE Member Subscriber Plan / Payer (Ef fective for All Dates) Name:Priscila Stephens Member ID:Not on file Relation to Subscriber:Not on file Name:PRISCILA STEPHENS Subscriber ID:Not on file Address: [address] [place] [address] Payer ID:Not on file Group ID:Not on file Type:Self Pay Address: [place], [place] Care Teams Washery Boss Relationship Specialty Start Date End Date Cate Scott MD [address] [place] [address] PCP - General Family Medicine 06/16/18
--- OUTSIDE RECORDS SUMMARY | 2025-01-19 12:44 | XMS_ITS | Clinical Summary ---
Author Organization [facility] Address [address] [place] [address] Phone Care Team Providers Care Creel Cleaner Name Role Phone Cate Scott MD Primary Care Provider Karen Leach BILINGUAL MEDICAL ASSISTANT Unavailable [phone] Allergies Active Allergy Reactions Criticality Noted Date [...] 1 tablet (100 mcg total) by mouth deckhand engineer before breakfast 0 Active letrozole (FEMARA) 2.5 [...] (01/06/2020): Added automatically from request for surgery [id number] Hypothyroidism 07/11/2013 Overview (06/01/2016): HYPOTHYROIDISM NOS Immunizations [...] Chronic bronchitis (HCC) with ch ronic cough 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 Fracture, [...] on file Legal Sex Female 11:56 PM PARBOILER Gender Identity Not on file Sexual Orientation [...] Tdap) 04/16/2025 Medical Devices Implanted Type Area Childbirth And Infant Care Teacher Device Identifier Shelf Expiration Date Model / Serial / Lot [employer] A-4750.32 Aptus Trilock [id number] 10 Hole Right Distal Volar Radius - S0 - [id number] Implanted:Qty: 1 on 01/11/2020 by Torsten Forman MD at [facility] Plate Right: Radius [employer] A-4750.32 / 0 / [employer] A-5750.10/1 Aptus Trilock 2.5mm 10mm Hexadrive 7 Screw Bone Titanium - S0 - [id number] Implanted:Qty: 1 on 01/11/2020 by Torsten Forman MD at [facility] Screw Right: Radius [employer] A-5750.10/ 1 / 0 / [employer] A-5700.12 Aptus 2.5mm 12mm Cortical Screw Bone - S0 - [id number] Implanted:Qty: 1 on 01/11/2020 by Torsten Forman MD at [facility] Screw Right: Radius [employer] A-5700.12 / 0 / [employer] A-5750.14/1 Aptus 2.5mm 14mm Lock Radius Screw Bone Eli - S0 - [id number] Implanted:Qty: 1 on 01/11/2020 by Torsten Forman MD at [facility] Screw Right: Radius [employer] A-5750.14/ 1 / 0 / [employer] A-5750.16/1 2.5mm 16mm Trilock Hexadrive Wrist Radius Screw Bone - S0 - [id number] Implanted:Qty: 1 on 01/11/2020 by Torsten Forman MD at [facility] [place] Screw Right: Radius [employer] A-5750.16/ 1 / 0 / [employer] A-5700.12 Aptus 2.5mm 12mm Cortical Screw Bone - S0 - [id number] Implanted:Qty: 1 on 01/11/2020 by Torsten Forman MD at [facility] [place] Screw Right: Radius [employer] A-5700.12 / 0 / [employer] A-5700.14 Aptus 2.5mm 14mm Cortical Screw Bone - S0 - [id number] Implanted:Qty: 1 on 01/11/2020 by Torsten Forman MD at [facility] Screw Right: Radius [employer] A-5700.14 / 0 / [employer] A-5700.14 Aptus 2.5mm 14mm Cortical Screw Bone - S0 - [id number] Implanted:Qty: 1 on 01/11/2020 by Torsten Forman MD at [facility] [place] Screw Right: Radius [employer] A-5700.14 / 0 / [employer] A-5750.14/1 Aptus 2.5mm 14mm Lock Radius Screw Bone Eli - S0 - [id number] Implanted:Qty: 1 on 01/11/2020 by Torsten Forman MD at [facility] [place] Screw Right: Radius [employer] A-5750.14/ 1 / 0 / [employer] A-5750.16/1 2.5mm 16mm Trilock Hexadrive Wrist Radius Screw Bone - S0 - [id number] Implanted:Qty: 1 on 01/11/2020 by Torsten Forman MD at [facility] [place] Screw Right: Radius [employer] A-5750.16/ 1 / 0 / [employer] A-5700.20 2.5mm 20mm Cortical Screw Bone - S0 - [id number] Implanted:Qty: 1 on 01/11/2020 by Torsten Forman MD at [facility] [place] Screw Right: Radius [employer] A-5700.20 / 0 / Insurance [facility]LY [facility]1983 MEDICARE [facility]1983 MEDICARE Address: [facility] [id number] [place] [phone] AETNA MEDICARE Care Teams Creel Cleaner Relationship Specialty Start Date End Date Cate Scott MD PCP - General Family Medicine 05/18/20 Karen Leach NP Nurse Practitioner Neurology 05/18/20
--- OUTSIDE RECORDS SUMMARY | 2025-01-19 12:44 | XMS_ITS | Clinical Summary ---
Author Organization [facility] Address [address] [place] [address] Phone Care Team Providers Care Screen Operator Name Role Phone Cate Scott MD Primary Care Provider [phone] Allergies Active Allergy Reactions Criticality Noted Date [...] M-ZINC PO Take by mouth. Active B Ibealwy-Jxqxvp-B A (B-COMPLEX PO) Take by mouth. Active Bioflavonoids (BIOFLAVONOID-10 00 PO) Take by mouth. Active ferrous sulfate 325 (65 Fe) MG Tablet Take 325 mg by mouth daily. Active letrozole (FEMARA) 2.5 MG TabletIndication s:Malignant neoplasm of right breast, stage 1, estrogen receptor positive,Postmen opausal state Take 1 Tab by mouth daily [...] Comments Hepatitis C Virus (HCV) Screening 1950 Varicella Immunization (1 of 2 - 13+ 2-dose series) 08/05/1964 Pneumococcal Immunization (5 0+ years) (1 of 2 - PCV) 08/05/1970 Zoster Immunization (1 of 2) 08/05/1970 Cologuard 08/05/1996 Colonoscopy 08/05/1996 Colorectal Cancer Screening 08/05/1996 Immunochemical Fecal Occult Blood 08/05/1996 Respiratory Syncytial Virus (RSV) Immunization (Adult) (1 - Risk 50-74 years 1-dose series) 08/05/2001 Influenza Immunization (#1) 2024 SARS-COV-2 Immunization ( season) 2024 12/30/2020, 05/05/2020, 04/13/2020 DTaP/Tdap/Td Immunization Discontinued 04/16/2015 TdaP Immunization Completed [...] Laterality Modality Other us Cate Scott MD [place] - IMAGING Final Result from Last 3 Months or Most Recently Relevant to Health Maintenance Care Teams Screen Operator Relationship Specialty Start Date End Date Cate Scott MD [address] [place] [id number] PCP - General Family Medicine 07/24/18
[2025-01-19 12:52] LABS: Thyroid Stimulating Hormone Reflex 1.910 uIU/mL (0.465-4.68)
[2025-01-19 13:04] LABS: Ferritin 18.50 ng/mL (11.1-264)
[2025-01-19 13:30] LABS: Vitamin B12 724.0 pg/mL (239-931)
[2025-01-20 10:09] LABS: Anti-CCP Ab, IgG/IgA 7 units (0-19)
[2025-01-23 18:08] LABS: Summary Report (Summary) FINAL (.)
== END 2025-01-19 10:58 | disposition home or self-care (01) ==
LOC: ANHLAB 10:58
PROVIDERS: PCP Nurse Practitioner Family; Visit Provider Nurse Practitioner Family
DX: F41.9 Anxiety disorder, unspecified (principal); E78.2 Mixed hyperlipidemia; E03.9 Hypothyroidism, unspecified; M81.0 Age-related osteoporosis without current pathological fracture; E34.8 Other specified endocrine disorders; H91.90 Unspecified hearing loss, unspecified ear; H81.03 Meniere's disease, bilateral; J32.9 Chronic sinusitis, unspecified; K21.9 Gastro-esophageal reflux disease without esophagitis; K57.90 Diverticulosis of intestine, part unspecified, without perforation or abscess without bleeding; Z78.0 Asymptomatic menopausal state; Z85.3 Personal history of malignant neoplasm of breast; M35.00 Sjogren syndrome, unspecified; M19.90 Unspecified osteoarthritis, unspecified site; M79.7 Fibromyalgia; J44.89 Other specified chronic obstructive pulmonary disease; G47.00 Insomnia, unspecified; R53.83 Other fatigue; Z79.899 Other long term (current) drug therapy
CPT/HCPCS: 36415; 80053; 80061; 80307; 82306; 82607; 82728; 82746; 83540; 83550; 83735; 84443; 85027; 86200; 86430

== ENCOUNTER 2025-02-03 10:55 | Outpatient (CLI) | payer MEDICARE, SELFPAY ==
[2025-02-05 11:09] LABS: ANA by IFA Rfx Titer/Pattern Negative (.)
== END 2025-02-03 10:56 | disposition home or self-care (01) ==
PROVIDERS: PCP Nurse Practitioner Family; Visit Provider Nurse Practitioner Family
DX: M35.00 Sjogren syndrome, unspecified (principal); M05.9 Rheumatoid arthritis with rheumatoid factor, unspecified; F41.9 Anxiety disorder, unspecified; E78.2 Mixed hyperlipidemia; E03.9 Hypothyroidism, unspecified; M81.0 Age-related osteoporosis without current pathological fracture; E34.8 Other specified endocrine disorders; J32.9 Chronic sinusitis, unspecified; K21.9 Gastro-esophageal reflux disease without esophagitis; Z78.0 Asymptomatic menopausal state; M79.7 Fibromyalgia; J44.89 Other specified chronic obstructive pulmonary disease
CPT/HCPCS: 86038